=== PATIENT | female | born 1995 | race African-American/Black ===

== ENCOUNTER → 2020-03-14 | Outpatient (CLI) | payer MEDICAID, SELFPAY ==
[2017-10-09 05:17] VITALS: BMI 31.9
[2020-03-14 19:04] LABS: Neisserai gonorrhoeae by PCR Negative (Negative); Probe Check PASS
[2020-03-14 19:06] LABS: Chlamydia Trachomatis by PCR POSITIVE (Negative)
[2020-03-20 16:32] LABS: HPV Reflexed? NOT INDICATED
== END | disposition home or self-care (01) ==
LOC: LABSPEC 15:29
PROVIDERS: Visit Provider Obstetrics & Gynecology
DX: Z12.4 Encounter for screening for malignant neoplasm of cervix (principal); Z11.3 Encounter for screening for infections with a predominantly sexual mode of transmission
CPT/HCPCS: 87491; 87591; 88175; G0145

== ENCOUNTER 2021-01-22 03:30 | Emergency (ER) | payer MEDICAID, SELFPAY ==
[2017-10-09 05:17] VITALS: BMI 31.9
--- NOTE | 2021-01-22 03:30 | RAD_ITS ---
STUDY: X-RAY CHEST REASON FOR EXAM: Female, 26 years old. CHEST PAIN TECHNIQUE: Single frontal view of the chest. COMPARISON: None. FINDINGS: Low lung volumes. Mild RIGHT basilar atelectasis/infiltrate. No pneumothorax or pleural effusion. Normal size heart. Normal mediastinum and tyrone. Normal visualized pulmonary arteries. Normal visualized aortic arch and descending thoracic aorta. Normal visualized thoracic spine. Normal visualized ribs, clavicles, and shoulders. There is no demonstrated abnormality of the visualized soft tissue structures of the upper abdomen. RAD/Chest 1 View (Portable) IMPRESSION: Mild RIGHT basilar atelectasis/infiltrate. Electronically Signed: Walter Romero MD at 4:23 EDT Tel , Service support ,
--- NOTE | 2021-01-22 08:58 | EKG12_ITS ---
Test Reason : CP Blood Pressure : / mmHG Vent. Rate : 085 BPM Atrial Rate : 085 BPM P-R Int : 174 ms QRS Dur : 086 ms QT Int : 348 ms P-R-T Axes : 058 032 012 degrees QTc Int : 414 ms Normal sinus rhythm with sinus arrhythmia Nonspecific ST and T wave abnormality Abnormal ECG Confirmed by FRANKLIN THAYER, GALI ([id number]), editor managing newspaper DESTINY NELSON ([id number]) on 01/24/2021 9:10:27 AM Referred By: Jonathan Harrington Confirmed By:GALI REID MD
[2021-01-22 09:41] LABS: BUN 14 mg/dL (7-18); BUN/Creat Ratio 16.7 RATIO (10-20); Creatinine, Serum 0.84 mg/dL (0.55-1.02); EST Glomerular Filtration Rate 88 mL/min (>60); Est Glom Filt Rate - Afr Amer 107 mL/min (>60); Glucose 98 mg/dL (74-106)
[2021-01-22 09:42] LABS: Absolute Lymphocyte Count 2.64 X10^3/uL (0.83-4.51); Absolute Neutrophil Count 3.2 X10^3/uL (2.0-7.7); Anion Gap 7 (5-15); Basophil# 0.05 X10^3/uL; Basophil% 0.8 % (0-1); Calcium,Total 9.2 mg/dL (8.5-10.1); Chloride 103 mmol/L (98-107); Eosinophil# 0.08 X10^3/uL; Eosinophils% 1.3 % (0-5); Hematocrit 39.1 % (37-47); Hemoglobin 12.6 g/dL (12.0-15.0); Lymphocyte # 2.64 X10^3/ul (0.83-4.51); Lymphocyte % 41.4 % (19-41); Mean Corp Hgb Conc 32.2 g/dL (32-36); Mean Corpuscular Hgb 28.6 pg (27.0-32.0); Mean Corpuscular Volume 88.9 fL (81-99); Mean Platelet Vol. 10.9 fl (6.2-12.0); Monocyte# 0.37 X10^3/uL; Monocyte% 5.8 % (0-10); NRBC Flagged by Analyzer 0 % (0-5); Neutrophil # 3.22 X10^3/uL (2.7-7.7); Neutrophil % 50.4 % (47-70); Platelet Count 233 K/mm3 (150-450); Potassium 3.5 mmol/L (3.5-5.1); RBC Distribution Width CV 14.3 % (11.6-14.6); RBC Distribution Width SD 46.5 fl (35.1-43.9); Sodium Level 139 mmol/L (136-145); White Blood Count 6.4 K/mm3 (4.4-11.0)
--- NOTE | 2021-02-06 22:38 | EX.ED.DYSGE1 ---
PFSH PFSH Home Medications Tablet 1 tab DAILY 10/09/17 [History Last Taken 10/08/17 09:00] docusate sodium 100 mg PO BID PRN PRN #60 cap 10/09/17 [Rx Last Taken Unknown] oxycodone 5 - 10 mg PO Q6H PRN PRN #25 tab 10/09/17 [Rx Last Taken Unknown] ibuprofen 800 mg PO TID PRN PRN #30 tab 10/11/17 [Rx Last Taken Unknown] Allergy/AdvReac Type Severity Reaction Status Date / Time No Known Allergies Allergy Verified 10/26/14 08:22 Social History Smoking Status: Former smoker MDM MDM Treatment and Re-Evaluation Comments:: This is a late entry. Patient was seen during downtime while we are switching to the new electronic health record. Please refer to the template done at that time. She presented with chest pain that she described as pressure lasting for several hours in her left chest and left upper extremity. She reports no history of heart disease or blood clots or aortic disease. Vital signs were reviewed. Patient alert and oriented. No acute distress. Heart regular rate and rhythm. Lungs clear. Pulses 2+ and equal. Calves soft and supple. Skin appears normal. Atypical chest pain EKG showed sinus rhythm at a rate of [address]-T wave changes. No sign of acute ischemia or infarction pattern. She was placed on a monitor. CBC and metabolic panel were unremarkable. Troponin was normal. Chest x-ray showed right basilar atelectasis, reviewed by the radiologist and myself. She was PERC negative. After discussion with the patient, she would like to follow-up as an outpatient. Return for any new or worsening issues. Discharged in stable condition. Discharge Plan Triage ED Provider: Jonathan Harrington Dx/Rx/DC Orders Prescriptions: No Action Tablet 1 tab DAILY RF: 0 oxycodone 5 MG tablet 5 - 10 mg PO Q6H PRN PRN (Reason: Severe Pain (6-10/10)) Qty: 25 RF: 0 docusate sodium 100 MG capsule 100 mg PO BID PRN PRN (Reason: Constipation) Qty: 60 RF: 1 ibuprofen 800 MG tablet 800 mg PO TID PRN PRN (Reason: pain or cramping) Qty: 30 RF: 1 Primary Care Provider: Care Physician,No Primary Disposition Disposition: Home, self care Discharge Date/Time: 01/22/21 04:55
== END 2021-01-22 04:55 | disposition home or self-care (01) ==
LOC: ED 07:23
PROVIDERS: Emergency Provider Emergency Medicine; Referring Provider Emergency Medicine
DX: R07.89 Other chest pain (principal); Z87.891 Personal history of nicotine dependence
CPT/HCPCS: 71045; 80048; 84484; 85025; 93005; 99283

== ENCOUNTER 2021-04-22 09:09 | Emergency (ER) | payer MEDICAID, SELFPAY ==
[2021-04-22 09:10] VITALS: BP 128/82; PULSE 95; RESP 18; TEMP 37.4; O2SAT 99; BMI 32.5
--- NOTE | 2021-04-22 09:24 | EX.ED.UPPERE ---
HPI History of Present Illness Chief Complaint: Laceration Detail of Chief Complaint: Left index finger laceration Informant: patient Occured/Mechanism Comment: Cut with scissors Onset/Context/Timing Onset: Today Current Severity: Mild Maximum Severity: Mild Narrative Narrative: Patient presents after suffering a laceration to her left index finger. Patient is right-hand dominant. She was using scissors this morning when she cut her left index finger. She did place a wound powder over the wound. She wished to have it evaluated to ensure it would not get infected or require stitches. Tetanus is up-to-date. PFSH PFSH no medical history Home Medications NK 04/22/21 [History Last Taken Unknown] Allergy/AdvReac Type Severity Reaction Status Date / Time No Known Allergies Allergy Verified 04/22/21 09:10 Social History Smoking Status: Former smoker ROS ROS ED Constitutional Constitutional ED: Denies chills or fever(s) ENT ENT ED: Denies sore throat Cardiovascular Cardiovascular: Denies chest pain Respiratory/Chest Respiratory/Chest: Denies cough or dyspnea Gastrointestinal Gastrointestinal: Denies abdominal pain, diarrhea, nausea or vomiting Integumentary Reports other Details: Left index finger laceration ; Denies rash Neurologic Neurologic: Denies headache(s) or weakness Psychiatric Psychiatric: Denies anxiety or depression Endocrine Endocrinology: Denies polydipsia or polyuria Allergic/Immunologic Allergic/Immunologic ED: Denies urticaria EXAM Physical Exam Const Vital Signs: 04/22/21 09:10 Temperature 99.4 F H Temperature Source Temporal Pulse Rate 95 Respiratory Rate 18 Blood Pressure 128/82 H Blood Pressure Mean 97 Pulse Ox 99 Oxygen Delivery Method Room Air Positive well nourished and well developed General Appearance ED: well developed HEENT normocephalic and atraumatic Eyes EOMs intact bilaterally Neck supple Chest Wall inspection of chest normal Resp normal respiratory effort Cardio regular rate and regular rhythm Extremity Extremity Narrative: Left index finger laceration. Full range of motion with normal sensation distally. Good cap refill. Neuro oriented x3 and no sensory deficits noted Sensorium / Orientation: alert Motor Exam: strength 5/5 throughout Psych mental status grossly normal Skin Skin Narrative: 2 cm laceration over the middle phalanx of the left index finger. Bleeding well controlled. Trauma: laceration linear Procedures Lacerations Left index finger laceration: Length: 0.79 in Depth: Skin Shape: Linear Prep: Shure-Clens Number of Sutures/[place]: 3 Suture Information: Ethilon, Simple and 5-0 Discharge Plan Triage Chief Complaint: Laceration ED Provider: Niki Hsu Dx/Rx/DC Orders Clinical Impression: Finger laceration Instructions: ED Laceration, Hand: All Closures Prescriptions: No Action NK RF: 0 Primary Care Provider: Roderick Martinez Referrals: Roderick Martinez MD [Primary Care Provider] - 7 Days for suture removal Disposition Disposition: Home, Self Care
[2021-04-22 10:23] VITALS: PULSE 74; RESP 16; O2SAT 98
[2021-04-22] MEDS: Lidocaine 1% (20 ml mdv) 20 ML Vial INFILT (10:23)
--- NOTE | 2021-04-22 10:24 | ED.RN ---
THIS NURSE REVIEWED D/C INSTRUCTIONS WITH PT. PT VERBALIZED UNDERSTANDING OF INSTRUCTIONS. PT DENIES FURTHER NEEDS OR QUESTIONS AT THIS TIME. PT AMBULATES FROM ROOM ON OWN WITHOUT ASSISTANCE FROM STAFF
== END 2021-04-22 10:25 | disposition home or self-care (01) ==
PROVIDERS: Emergency Provider Emergency Medicine; PCP Family Medicine
DX: S61.211A Laceration without foreign body of left index finger without damage to nail, initial encounter (principal); Z87.891 Personal history of nicotine dependence; W26.8XXA Contact with other sharp object(s), not elsewhere classified, initial encounter; Y93.89 Activity, other specified; Y92.009 Unspecified place in unspecified non-institutional (private) residence as the place of occurrence of the external cause; Y99.8 Other external cause status
CPT/HCPCS: 12001; 99283

== ENCOUNTER → 2021-05-18 | Outpatient (CLI) | payer MEDICAID, SELFPAY | END | disposition home or self-care (01) | LOC: EMPH 05-20 08:19 → LABSPEC 06-06 13:57 | PROVIDERS: PCP Family Medicine; Referring Provider Nurse Practitioner Family; Visit Provider Internal Medicine Infectious Disease | DX: R05 Cough (principal) | CPT/HCPCS: 87635; U0005; U0003 ==

== ENCOUNTER 2021-09-08 01:05 | Emergency (ER) | payer MEDICAID, SELFPAY ==
[2021-09-08 01:06] VITALS: BP 139/101; PULSE 130; RESP 18; TEMP 36.6; O2SAT 100; BMI 32.1
--- NOTE | 2021-09-08 01:28 | EKG12_ITS ---
Test Reason : CP Blood Pressure : / mmHG Vent. Rate : 126 BPM Atrial Rate : 126 BPM P-R Int : 170 ms QRS Dur : 078 ms QT Int : 276 ms P-R-T Axes : 054 023 010 degrees QTc Int : 399 ms Sinus tachycardia Nonspecific T wave abnormality Abnormal ECG Confirmed by HARITHA THAYER, KALI ([id number]), rock splitter DESTINY NELSON ([id number]) on 09/09/2021 10:26:00 AM Referred By: TL Confirmed By:KALI MG MD
--- NOTE | 2021-09-08 01:29 | EX.ED.DYSGE1 ---
HPI History of Present Illness Chief Complaint: Chest Pain Informant: patient Narrative Narrative: Patient presents with increasing myalgia's right lower back right upper shoulder right chest since yesterday. Symptoms are improving with Tylenol Motrin [id number]. Diagnosed with Covid 9 days ago symptoms started 2 weeks ago. Reported initially lost taste and smell, 9 days ago had headache and chills when she got tested. She is nonvaccinated. States that the Covid infection earlier this year. Denies vomiting or diarrhea. States getting some mild taste and smell back currently. However yesterday noted new pains primary right flank. She still has urine frequency. Denies past medical history. States nonproductive cough. Reports her first Covid diagnosis was mild with just fatigue. Prior similar symptoms: No PFSH PFSH Medical History COVID Home Medications rivaroxaban [Xarelto DVT-PE Treat 30d Start] See Rx Instructions .ROUTE .COMPLEX #51 tab 09/08/21 [Rx Last Taken Unknown] Allergy/AdvReac Type Severity Reaction Status Date / Time No Known Allergies Allergy Verified 09/08/21 01:06 Surgical History History of Social History Smoking Status: Former smoker ROS ROS ED Constitutional Constitutional ED: Denies chills, fever(s) or sweats Eyes Eyes: Denies change in vision ENT ENT ED: Denies dysphagia or sore throat Cardiovascular Cardiovascular: Denies chest pain, leg edema, palpitations or racing heartbeat Respiratory/Chest Respiratory/Chest: Reports cough; Denies dyspnea or dyspnea on exertion Gastrointestinal Gastrointestinal: Denies abdominal pain, diarrhea, nausea or vomiting Genitourinary Genitourinary ED: Reports urinary frequency; Denies dysuria or hematuria Musculoskeletal Musculoskeletal: Reports back pain and myalgias; Denies extremity pain or neck pain Integumentary Denies rash or wounds Neurologic Neurologic: Denies headache(s), paresthesias or weakness EXAM Physical Exam Const Vital Signs: 09/08/21 01:06 09/08/21 01:16 09/08/21 03:13 Temperature 97.8 F Temperature Source Temporal Pulse Rate 130 H 108 H Respiratory Rate 18 20 H Respiratory Effort Normal Non-Labored Respiratory Pattern Normal Blood Pressure 139/101 H Blood Pressure Mean 113 Pulse Ox 100 99 Oxygen Delivery Method Room Air Room Air 09/08/21 04:10 Temperature Temperature Source Pulse Rate 107 H Respiratory Rate 20 H Respiratory Effort Respiratory Pattern Blood Pressure Blood Pressure Mean Pulse Ox 99 Oxygen Delivery Method Positive well nourished and well developed General Appearance ED: well developed and NAD HEENT Reports moist mucous membranes normocephalic and atraumatic Eyes PERRL, EOMs intact bilaterally and conjunctivae normal General Eye ED: Yes normal appearance of both eyes Neck no lymphadenopathy and supple General: Negative for tenderness Chest Wall Chest: Negative for tenderness Resp normal respiratory effort and normal air movement Effort and Inspection: symmetric chest movement; Negative for respiratory distress Cardio regular rate, regular rhythm and no murmurs Rate: bradycardia and other Peripheral Pulses: pulses 2+ throughout GI normal to inspection, nondistended, normoactive bowel sounds and non-tender Palpation: Negative for guarding or rebound tenderness present Back/Spine no CVA tenderness and no thoracic nor lumbar tenderness Extremity normal to inspection General Extremety ED: Negative for edema or tenderness General Extremity: Negative for edema Neuro oriented x3 and no sensory deficits noted Sensorium / Orientation: awake and alert Skin no rashes or lesions noted and no wounds MDM MDM MDM Narrative Medical decision making narrative: Patient nontoxic no respiratory distress. Pulse ox 100% on arrival. Patient tachycardic. EKG confirms sinus tachycardia. Currently recovering from Covid new symptoms over 2 days pain in the shoulder right chest. Low risk Wells criteria for PE, labs with D-dimer obtained. This was elevated. Subsequent CTA of the chest obtained discussion with radiology right lower lobe pulmonary embolism with wedge-shaped infarct. With IV fluids heart rate in the 90s on reevaluation. Pulse ox remained at 99% on reevaluation. Creatinine clearance is normal. Discussed medication treatments. She has prescription coverage. She is started on Xarelto with starter pack sent to her pharmacy. First dose was given in the ED. Discussed avoiding NSAIDs, using Tylenol as needed for pain control. Following up with her PCP for reevaluation and continued medical treatment. All questions were answered. Patient is being discharged under pandemic conditions under declared global, national and state disaster activation, with limited medical resources. Patient and community understands this. Results discussed in layman's terms to the patient satisfaction. All questions answered in layman's terms. Patient understands importance of follow-up care as directed. Patient has been instructed to return to the ED immediately if new symptoms, problems, or questions occur. We mutually agree with the plan of disposition. The patient understand that they may call or return with any questions or concerns at any time. Lab Data Attestation: I reviewed the patient's lab results. Labs: Laboratory Results - last 24 hr 09/08/21 09/08/21 09/08/21 01:45 01:45 01:45 WBC 8.0 RBC 4.15 L Hgb 10.8 L Hct 33.8 L MCV 81.4 MCH 26.0 L MCHC 32.0 RDW Std Deviation 42.8 RDW Coeff of Vinay 14.4 Plt Count 291 MPV 10.5 Immature Gran % (Auto) 0.700 Neut % (Auto) 78.5 H Lymph % (Auto) 14.4 L Ida % (Auto) 6.0 Eos % (Auto) 0.2 Baso % (Auto) 0.2 Absolute Neuts (auto) 6.3 Absolute Lymphs (auto) 1.15 Nucleated RBC % 0 D-Dimer Quant (PE/DVT) 2.45 H* Sodium Potassium Chloride Carbon Dioxide Anion Gap BUN Creatinine Estim Creat Clear Calc Est GFR (MDRD) Af Amer Est GFR (MDRD) Non-Af BUN/Creatinine Ratio Glucose Calcium Serum , Qual Urine Color Yellow Urine Clarity Clear Urine pH 6.5 Ur Specific [place] 1.010 Urine Protein Negative Urine Glucose (UA) Normal Urine Ketones Negative Urine Occult Blood Negative Urine Nitrite Negative Urine Bilirubin Negative Urine Urobilinogen Normal Ur Leukocyte Esterase Negative Urine RBC 0 SEEN Urine WBC 0 SEEN Ur Squamous Epith Cells 0-5 SEEN Urine Bacteria 1+ Urine Mucus 0 SEEN 09/08/21 09/08/21 01:45 01:45 WBC RBC Hgb Hct MCV MCH MCHC RDW Std Deviation RDW Coeff of Vinay Plt Count MPV Immature Gran % (Auto) Neut % (Auto) Lymph % (Auto) Ida % (Auto) Eos % (Auto) Baso % (Auto) Absolute Neuts (auto) Absolute Lymphs (auto) Nucleated RBC % D-Dimer Quant (PE/DVT) Sodium 140 Potassium 3.3 L Chloride 106 Carbon Dioxide 27.0 Anion Gap 7 BUN 11 Creatinine 0.77 Estim Creat Clear Calc 84.28 Est GFR (MDRD) Af Amer 117 Est GFR (MDRD) Non-Af 97 BUN/Creatinine Ratio 14.3 Glucose 103 Calcium 8.9 Serum , Qual NEGATIVE Urine Color Urine Clarity Urine pH Ur Specific [place] Urine Protein Urine Glucose (UA) Urine Ketones Urine Occult Blood Urine Nitrite Urine Bilirubin Urine Urobilinogen Ur Leukocyte Esterase Urine RBC Urine WBC Ur Squamous Epith Cells Urine Bacteria Urine Mucus Radiography Diagnostic Testing: Clinical Impression(s) from Imaging Studies Chest CTA 09/08/21 02:39 IMPRESSION: Small peripheral right lower lobe pulmonary emboli. Wedge-shaped right lower lobe density probably representing a pulmonary infarction. Right lower lobe pneumonia or subsegmental atelectasis are less likely. N.B. : The above Results were Read Back by Daniele Miranda MD to Don Marie MD, and understanding confirmed on 09/08/2021 03:49:52 (ET). Electronically Signed: Daniele Miranda MD at 3:55 EST , Service support , ADDENDUM: 09/08/21 0402 IMPRESSION: Small peripheral right lower lobe pulmonary emboli. Wedge-shaped right lower lobe density probably representing a pulmonary infarction. Right lower lobe pneumonia or subsegmental atelectasis are less likely. N.B. : The above Results were Read Back by Daniele Miranda MD to Don Marie MD, and understanding confirmed on 09/08/2021 03:49:52 (ET). Electronically Signed: Daniele Miranda MD at 3:55 EST , Service support , EKG Initial EKG: Attestation: I personally reviewed and interpreted this EKG as follows: Comments: Sinus rate of 126, no ST changes. T wave inversion leads III. Nonspecific. Discharge Plan Triage Chief Complaint: Chest Pain ED Provider: Don Marie Dx/Rx/DC Orders Clinical Impression: Pulmonary embolism on right, COVID-19 virus infection, Pulmonary infarct Instructions: Pulmonary Embolism Prescriptions: New Xarelto DVT-PE Treat 30d Start 15 mg (42)- 20 mg (9) tablets,dose pack See Rx Instructions .ROUTE .COMPLEX Qty: 51 RF: 0 Primary Care Provider: Roderick Martinez Referrals: Roderick Martinez MD [Primary Care Provider] - 5-7 Days Activity Restrictions/Additional Instructions: Right lower lobe pulmonary embolism with infarct. Your oxygen is 99% on room air. Take medication as prescribed for blood thinner. Use Tylenol as needed for pain. Avoid anti-inflammatory medicine secondary to being on Xarelto. Follow-up with your doctor. Disposition Disposition: Home, Self Care Discharge Date/Time: 09/08/21 04:11
[2021-09-08 01:50] LABS: Mucous, Urine 0 SEEN /hpf (<or=2+); Red Blood Cells-Urine 0 SEEN /hpf (0-5); White Blood Cells 0 SEEN /hpf (0-5)
[2021-09-08 01:53] LABS: Color, Urine Yellow (Yellow); Glucose, Dipstick Normal (Normal); Ketone-Dipstick Negative (Negative); Leukocyte Esterase-Dipstick Negative /ul (Negative); Nitrite-Dipstick Negative (Negative); Occult Blood-Urine Negative /ul (Negative); Protein-Dipstick Negative (Negative); Urine Bilirubin Dipstick Negative (Negative); Urine Clarity Clear (Clear); Urine Urobilinogen Normal (Normal); Urine pH 6.5 (5.0 - 8.0)
[2021-09-08 02:09] LABS: Bacteria 1+ /hpf (None Seen); Squamous Epithelial Cells - UA 0-5 SEEN /hpf (5-10)
[2021-09-08 02:13] LABS: Absolute Lymphocyte Count 1.15 X10^3/uL (0.83-4.51); Absolute Neutrophil Count 6.3 X10^3/uL (2.0-7.7); Basophil# 0.02 X10^3/uL; Basophil% 0.2 % (0-1); Eosinophil# 0.02 X10^3/uL; Eosinophils% 0.2 % (0-5); Hematocrit 33.8 % (37-47); Hemoglobin 10.8 g/dL (12.0-15.0); Lymphocyte # 1.15 X10^3/ul (0.83-4.51); Lymphocyte % 14.4 % (19-41); Mean Corpuscular Volume 81.4 fL (81-99); Mean Platelet Vol. 10.5 fl (6.2-12.0); Monocyte# 0.48 X10^3/uL; NRBC Flagged by Analyzer 0 % (0-5); Neutrophil # 6.28 X10^3/uL (2.7-7.7); Neutrophil % 78.5 % (47-70); Platelet Count 291 K/mm3 (150-450); RBC Distribution Width CV 14.4 % (11.6-14.6); RBC Distribution Width SD 42.8 fl (35.1-43.9); Red Blood Count 4.15 M/mm3 (4.2-5.4)
[2021-09-08 02:17] LABS: Internal QC Validated? YES +Cl - CLEAR BKGD; Pregnancy, Serum, hCG Quali. NEGATIVE Negative
[2021-09-08 02:20] LABS: Anion Gap 7 (5-15); BUN 11 mg/dL (7-18); BUN/Creat Ratio 14.3 RATIO (10-20); Calcium,Total 8.9 mg/dL (8.5-10.1); Chloride 106 mmol/L (98-107); Creatinine, Serum 0.77 mg/dL (0.55-1.02); EST Glomerular Filtration Rate 97 mL/min (>60); Est Glom Filt Rate - Afr Amer 117 mL/min (>60); Estimated Creatinine Clearance 84.28 ml/min; Glucose 103 mg/dL (74-106); Potassium 3.3 mmol/L (3.5-5.1); Sodium Level 140 mmol/L (136-145)
[2021-09-08 02:31] LABS: D-Dimer Quantitative (DVT/PE) 2.45 FEU/ug/m (0.27-0.49)
--- NOTE | 2021-09-08 02:39 | CT_ITS ---
STUDY: CTA CHEST REASON FOR EXAM: Female, 26 years old. chest pain, elevated dimer, recent Covid infection. RADIATION DOSAGE (If Supplied By Facility): CTDIvol = ( 12.93 ) mGy, DLP = ( 425.22 ) mGycm TECHNIQUE: The examination was performed with the intravenous administration of IV 100mL Isovue-370. Post-processing of the angiographic images was performed, with multiplanar reformation and maximum intensity projections.. Individualized dose optimization techniques were used for this CT. COMPARISON: Chest x-ray January 22, 2021. FINDINGS: Normal enhancement of the main pulmonary artery and right and left pulmonary arteries. Peripheral pulmonary embolus involving an anterior branch of the right lower lobe pulmonary artery axial image 97 and a posterior branch of the right lower lobe pulmonary artery axial image 93. No evidence of right heart strain. Normal thoracic aorta and visualized great vessels. There is no demonstrated aortic dissection. Normal heart and pericardium. Normal mediastinum. Normal hilar regions. Left supraclavicular lymph node which is not pathologic by size criteria. Normal visualized trachea and bronchi wedge-shaped density right lower lobe compatible with a pulmonary infarct, subsegmental atelectasis or pneumonia. Linear left lower lobe subsegmental atelectasis or fibrosis. No effusions. No pneumothorax. Normal pleura. Normal chest wall structures. Normal osseous structures. Normal visualized upper abdomen. CT/CTA Chest W/WO Contrast IMPRESSION: Small peripheral right lower lobe pulmonary emboli. Wedge-shaped right lower lobe density probably representing a pulmonary infarction. Right lower lobe pneumonia or subsegmental atelectasis are less likely. N.B. : The above Results were Read Back by Daniele Miranda MD to Don Marie MD, and understanding confirmed on 09/08/2021 03:49:52 (ET). Electronically Signed: Daniele Miranda MD at 3:55 EST , Service support ,
[2021-09-08 03:13] VITALS: PULSE 108; RESP 20; O2SAT 99
[2021-09-08] MEDS: Rivaroxaban 15 MG Tablet PO (04:09)
[2021-09-08 04:10] VITALS: PULSE 107; RESP 20; O2SAT 99
== END 2021-09-08 04:11 | disposition home or self-care (01) ==
PROVIDERS: Emergency Provider Emergency Medicine; PCP Family Medicine
DX: I26.99 Other pulmonary embolism without acute cor pulmonale (principal); U07.1 COVID-19; J98.4 Other disorders of lung; R35.0 Frequency of micturition; Z86.16 Personal history of COVID-19; Z87.891 Personal history of nicotine dependence
CPT/HCPCS: 71275; 80048; 81001; 84703; 85025; 85379; 93005; 96360; 99285; J7040; Q9967; A4216

== ENCOUNTER 2022-07-30 16:56 | Emergency (ER) | payer OTHER, MEDICAID, SELFPAY ==
[2022-07-30 16:56] VITALS: BP 130/85; PULSE 87; RESP 16; TEMP 36.6; O2SAT 100; BMI 32.8
--- NOTE | 2022-07-30 17:16 | ED.VIS.FEGU ---
HPI HPI - Female History of Present Illness Chief Complaint: Vag Bleeding Narrative Narrative: 27-year-old female here with vaginal bleeding in the setting of recent positive home test. The patient states she has noticed lower abdominal cramping, vaginal spotting, bleeding for the last week. Denies any passage of tissue. Denies any history of ectopic , fertility treatments, manipulation, history of PID. Denies any vomiting. No she is a . Denies history of miscarriages PFSH PFSH Medical History COVID no medical history Allergy/AdvReac Type Severity Reaction Status Date / Time No Known Allergies Allergy Verified 07/30/22 16:58 Surgical History History of Social History Smoking Status: Current every day smoker tobacco type: cigarettes and e-cigarettes ROS ROS ED ROS Narrative Constitutional: Denies fever HEENT: Denies sore throat Neck: Denies neck pain Cardiovascular: Denies chest pain, syncope Respiratory: Denies shortness of breath GI: Abdominal cramping : Vaginal bleeding Musculoskeletal: Denies muscle or joint pain Neurologic: Denies numbness weakness or loss of sensation Skin denies rash EXAM Physical Exam Narrative Exam Narrative: Nursing triage notes reviewed, Vital signs reviewed Constitutional: please see mdm HENT: MMM Eyes: Pupils equal round and reactive to light, Extraocular muscles intact Neck: No stridor, no JVD, full neck ROM Lungs: Clear to auscultation, No wheezing or rales. No increased work of breathing, no conversational dyspnea, no accessory muscle use, no nasal flaring. No respiratory distress noted Heart: Regular rate and rhythm, No murmurs, No rubs and No gallops, 2+ distal pulses (radial, femoral, posterior tibial) in all extremities Abdomen: Soft, there is no tenderness, rigidity, rebound or guarding, no obvious peritoneal signs, no palpable pulsatile abdominal masses, no auscultated abdominal bruit : No CVAT, pelvic exam deferred by patient Extremities: No edema Neuro: No focal neurological deficits, cranial nerves II through XII intact, 5/5 strength in all extremities. Intact sensation to light touch in all extremities, 2+ reflexes bilateral patella dens. Normal gait. No ataxia. Skin: No rash or lesions noted Const Vital Signs: 07/30/22 16:56 07/30/22 19:45 Temperature 98 F Temperature Source Temporal Pulse Rate 87 Respiratory Rate 16 18 Blood Pressure 130/85 H Blood Pressure Mean 100 Pulse Ox 100 Oxygen Delivery Method Room Air Room Air MDM MDM MDM Narrative Medical decision making narrative: 27-year-old female here for vaginal bleeding early . Patient is probably 5 weeks . Is a G3, P2. No history miscarriages. No history of ectopic or fertility treatments or manipulation. Obtain ultrasound to rule out ectopic . Obtained a quantitative hCG. Also obtain a type and screen to ascertain the patient's Rh status, obtain a CBC to rule out significant anemia given vaginal bleeding. Labs images remarkable for evidence of with a beta-hCG of 1495. Ultrasound showed no evidence of intrauterine or ectopic . While ectopic cannot be fully ruled out I do not see evidence of that today. Patient did not require emergent COLUMNIST/COMMENTATOR consultation. Patient was Rh+ and as such does not require RhoGAM. She is given strict return precautions and OB follow-up instructions Lab Data Attestation: I reviewed the patient's lab results. Lab results narrative: CBC without leukocytosis, severe anemia, no thrombocytopenia. BMP without evidence of significant electrolyte abnormalities, no anion gap, no acute kidney injury. Blood type Rh+, no need for RhoGAM UA with evidence of inflammation but no obvious evidence of bacterial infection Labs: Laboratory Results - last 24 hr 07/30/22 07/30/22 07/30/22 18:10 18:10 18:10 WBC 5.8 RBC 4.61 Hgb 12.4 Hct 37.5 MCV 81.3 MCH 26.9 L MCHC 33.1 RDW Std Deviation 45.1 H RDW Coeff of Vinay 15.2 H Plt Count 308 MPV 9.9 Immature Gran % (Auto) 0.300 Neut % (Auto) 60.7 Lymph % (Auto) 32.8 [place] % (Auto) 5.0 Eos % (Auto) 0.7 Baso % (Auto) 0.5 Absolute Neuts (auto) 3.5 Absolute Lymphs (auto) 1.90 Nucleated RBC % 0 Sodium 139 Potassium 3.4 L Chloride 106 Carbon Dioxide 26.0 Anion Gap 7 BUN 8 Creatinine 0.78 Estim Creat Clear Calc 82.48 Est GFR (MDRD) Af Amer 115 Est GFR (MDRD) Non-Af 95 BUN/Creatinine Ratio 10.3 Glucose 98 Calcium 9.7 HCG, Quant 1495 H Urine Color Urine Clarity Urine pH Ur Specific [place] Urine Protein Urine Glucose (UA) Urine Ketones Urine Occult Blood Urine Nitrite Urine Bilirubin Urine Urobilinogen Ur Leukocyte Esterase Blood Type 07/30/22 07/30/22 07/30/22 18:10 18:10 18:10 WBC RBC Hgb Hct MCV MCH MCHC RDW Std Deviation RDW Coeff of Vinay Plt Count MPV Immature Gran % (Auto) Neut % (Auto) Lymph % (Auto) [place] % (Auto) Eos % (Auto) Baso % (Auto) Absolute Neuts (auto) Absolute Lymphs (auto) Nucleated RBC % Sodium Potassium Chloride Carbon Dioxide Anion Gap BUN Creatinine Estim Creat Clear Calc Est GFR (MDRD) Af Amer Est GFR (MDRD) Non-Af BUN/Creatinine Ratio Glucose Calcium HCG, Quant Urine Color Alexa Urine Clarity Clear Urine pH 7.0 Ur Specific [place] 1.010 Urine Protein 30 H Urine Glucose (UA) Normal Urine Ketones 5 H Urine Occult Blood 250 H Urine Nitrite Negative Urine Bilirubin Negative Urine Urobilinogen Normal Ur Leukocyte Esterase 25 H Blood Type TNP A POSITIVE Radiography Diagnostic Testing: Clinical Impression(s) from Imaging Studies Obstetrics Ultrasound 07/30/22 18:00 IMPRESSION: 1. No evidence of intrauterine suggesting miscarriage. 2. No visualized ectopic . The possibility of an ectopic cannot be entirely ruled out in the presence of free fluid. 3. Normal ovaries Electronically Signed: Fabian Chun DO at 19:06 EDT Reading Location ID and State: [address] [place] [address] Tel [phone], Service support , Treatment and Re-Evaluation Narrative: Repeat abdominal exam remained benign. The patient's appropriate for discharge home. Discharge Plan Triage Chief Complaint: Vag Bleeding ED Provider: Robel Garcia Dx/Rx/DC Orders Clinical Impression: Miscarriage Instructions: Miscarriage Dc Primary Care Provider: Roderick Martinez Referrals: Kvng Gandhi MD [Med Staff - Active Staff] - Activity Restrictions/Additional Instructions: Please follow-up with your COLUMNIST/COMMENTATOR at the next available appointment. If you do not have an COLUMNIST/COMMENTATOR 1 has been provided for you. Please return if you develop suddenly worsening abdominal pain. Heavy vaginal bleeding that is accompanied by lightheadedness, dizziness, fatigue, shortness of breath or chest pain Disposition Disposition: Home, Self Care
--- NOTE | 2022-07-30 18:00 | US_ITS ---
STUDY: FIRST TRIMESTER OBSTETRICAL ULTRASOUND REASON FOR EXAM: Female, 27 years old. Vaginal bleeding and lower abdominal pain. 5 week . LMP: July 05, 2022 TECHNIQUE: Transvaginal TECHNICAL QUALITY: Adequate. PRIOR ULTRASOUND: None. FINDINGS: There is no demonstrated intrauterine gestational sac. The estimated gestation age (EGA) by LMP is 5 weeks, 4 days. The estimated date of delivery (ALBERTA) by LMP is March 28, 2023. The uterus measures 7.6 x 5.7 x 3.9 cm. The endometrium measures 9 mm in thickness and is hyperechoic. There is no demonstrated uterine fibroid. The cervix is closed. The right ovary measures 3.6 x 2.3 x 2.0 cm. There are multiple follicles of the right ovary without a dominant cyst. There is no visualized right adnexal mass or complex lesion. Normal vascularity on Doppler imaging. The left ovary measures 3.6 x 2.5 x 1.9 cm. There are multiple follicles of the left ovary without a dominant cyst. There is no visualized left adnexal mass or complex lesion. Normal vascularity on Doppler imaging. There is minimal fluid in the cul de sac. US/Transvaginal w/Preg US IMPRESSION: 1. No evidence of intrauterine suggesting miscarriage. 2. No visualized ectopic . The possibility of an ectopic cannot be entirely ruled out in the presence of free fluid. 3. Normal ovaries Electronically Signed: Fabian Chun DO at 19:06 EDT ,
[2022-07-30 18:24] LABS: Absolute Neutrophil Count 3.5 X10^3/uL (2.0-7.7); Basophil# 0.03 X10^3/uL; Basophil% 0.5 % (0-1); Color, Urine Amber (Yellow); Eosinophil# 0.04 X10^3/uL; Eosinophils% 0.7 % (0-5); Glucose, Dipstick Normal (Normal); Hematocrit 37.5 % (37-47); Hemoglobin 12.4 g/dL (12.0-15.0); Ketone-Dipstick 5 mg/dl (Negative); Leukocyte Esterase-Dipstick 25 /ul (Negative); Lymphocyte % 32.8 % (19-41); Mean Corp Hgb Conc 33.1 g/dL (32-36); Mean Corpuscular Hgb 26.9 pg (27.0-32.0); Mean Corpuscular Volume 81.3 fL (81-99); Mean Platelet Vol. 9.9 fl (6.2-12.0); Monocyte# 0.29 X10^3/uL; NRBC Flagged by Analyzer 0 % (0-5); Neutrophil # 3.51 X10^3/uL (2.7-7.7); Neutrophil % 60.7 % (47-70); Nitrite-Dipstick Negative (Negative); Occult Blood-Urine 250 /ul (Negative); Platelet Count 308 K/mm3 (150-450); Protein-Dipstick 30 mg/dl (Negative); RBC Distribution Width CV 15.2 % (11.6-14.6); RBC Distribution Width SD 45.1 fl (35.1-43.9); Red Blood Count 4.61 M/mm3 (4.2-5.4); Urine Bilirubin Dipstick Negative (Negative); Urine Clarity Clear (Clear); Urine Urobilinogen Normal (Normal); White Blood Count 5.8 K/mm3 (4.4-11.0)
[2022-07-30 18:42] LABS: Anion Gap 7 (5-15); BUN 8 mg/dL (7-18); BUN/Creat Ratio 10.3 RATIO (10-20); Calcium,Total 9.7 mg/dL (8.5-10.1); Chloride 106 mmol/L (98-107); Creatinine, Serum 0.78 mg/dL (0.55-1.02); EST Glomerular Filtration Rate 95 mL/min (>60); Est Glom Filt Rate - Afr Amer 115 mL/min (>60); Estimated Creatinine Clearance 82.48 ml/min; Glucose 98 mg/dL (74-106); Potassium 3.4 mmol/L (3.5-5.1); Sodium Level 139 mmol/L (136-145)
[2022-07-30 19:13] LABS: hCG Titer Quant., Serum 1495 mIU/mL (1-3)
[2022-07-30 19:45] VITALS: RESP 18
--- NOTE | 2022-07-30 20:48 | ED.VIS.FEGU ---
HPI HPI - Female History of Present Illness Chief Complaint: Vag Bleeding Narrative Narrative: 27-year-old female here with lower abdominal cramping, vaginal bleeding. Patient states she is approximately 5 weeks . No history of ectopic . No history of manipulation, fertility treatment, PID. Patient denies vomiting, fever, difficulty with urination. Denies passing any tissue, leakage of fluid does note vaginal spotting PFSH PFSH Medical History COVID Allergy/AdvReac Type Severity Reaction Status Date / Time No Known Allergies Allergy Verified 07/30/22 16:58 Surgical History History of Social History Smoking Status: Current every day smoker tobacco type: cigarettes and e-cigarettes ROS ROS ED ROS Narrative Constitutional: Denies fever HEENT: Denies sore throat Neck: Denies neck pain Cardiovascular: Denies chest pain, syncope Respiratory: Denies shortness of breath GI: Denies nausea vomiting or abdominal pain : Endorses vaginal bleeding Musculoskeletal: Denies muscle or joint pain Neurologic: Denies numbness weakness or loss of sensation Skin denies rash EXAM Physical Exam Narrative Exam Narrative: Nursing triage notes reviewed, Vital signs reviewed Constitutional: please see mdm HENT: MMM Eyes: Pupils equal round and reactive to light, Extraocular muscles intact Neck: No stridor, no JVD, full neck ROM Lungs: Clear to auscultation, No wheezing or rales. No increased work of breathing, no conversational dyspnea, no accessory muscle use, no nasal flaring. No respiratory distress noted Heart: Regular rate and rhythm, No murmurs, No rubs and No gallops, 2+ distal pulses (radial, femoral, posterior tibial) in all extremities Abdomen: Soft, there is no tenderness, rigidity, rebound or guarding, no obvious peritoneal signs, no palpable pulsatile abdominal masses, no auscultated abdominal bruit : No CVAT Extremities: No edema Neuro: No focal neurological deficits, cranial nerves II through XII intact, 5/5 strength in all extremities. Intact sensation to light touch in all extremities, 2+ reflexes bilateral patella dens. Normal gait. No ataxia. Skin: No rash or lesions noted Const Vital Signs: 07/30/22 16:56 07/30/22 19:45 Temperature 98 F Temperature Source Temporal Pulse Rate 87 Respiratory Rate 16 18 Blood Pressure 130/85 H Blood Pressure Mean 100 Pulse Ox 100 Oxygen Delivery Method Room Air Room Air [facility] Lab Data Labs: Laboratory Results - last 24 hr 07/30/22 07/30/22 07/30/22 18:10 18:10 18:10 WBC 5.8 RBC 4.61 Hgb 12.4 Hct 37.5 MCV 81.3 MCH 26.9 L MCHC 33.1 RDW Std Deviation 45.1 H RDW Coeff of Vinay 15.2 H Plt Count 308 MPV 9.9 Immature Gran % (Auto) 0.300 Neut % (Auto) 60.7 Lymph % (Auto) 32.8 [place] % (Auto) 5.0 Eos % (Auto) 0.7 Baso % (Auto) 0.5 Absolute Neuts (auto) 3.5 Absolute Lymphs (auto) 1.90 Nucleated RBC % 0 Sodium 139 Potassium 3.4 L Chloride 106 Carbon Dioxide 26.0 Anion Gap 7 BUN 8 Creatinine 0.78 Estim Creat Clear Calc 82.48 Est GFR (MDRD) Af Amer 115 Est GFR (MDRD) Non-Af 95 BUN/Creatinine Ratio 10.3 Glucose 98 Calcium 9.7 HCG, Quant 1495 H Urine Color Urine Clarity Urine pH Ur Specific [place] Urine Protein Urine Glucose (UA) Urine Ketones Urine Occult Blood Urine Nitrite Urine Bilirubin Urine Urobilinogen Ur Leukocyte Esterase Blood Type 07/30/22 07/30/22 07/30/22 18:10 18:10 18:10 WBC RBC Hgb Hct MCV MCH MCHC RDW Std Deviation RDW Coeff of Vinay Plt Count MPV Immature Gran % (Auto) Neut % (Auto) Lymph % (Auto) [place] % (Auto) Eos % (Auto) Baso % (Auto) Absolute Neuts (auto) Absolute Lymphs (auto) Nucleated RBC % Sodium Potassium Chloride Carbon Dioxide Anion Gap BUN Creatinine Estim Creat Clear Calc Est GFR (MDRD) Af Amer Est GFR (MDRD) Non-Af BUN/Creatinine Ratio Glucose Calcium HCG, Quant Urine Color Alexa Urine Clarity Clear Urine pH 7.0 Ur Specific [place] 1.010 Urine Protein 30 H Urine Glucose (UA) Normal Urine Ketones 5 H Urine Occult Blood 250 H Urine Nitrite Negative Urine Bilirubin Negative Urine Urobilinogen Normal Ur Leukocyte Esterase 25 H Blood Type TNP A POSITIVE Radiography Diagnostic Testing: Clinical Impression(s) from Imaging Studies Obstetrics Ultrasound 07/30/22 18:00 IMPRESSION: 1. No evidence of intrauterine suggesting miscarriage. 2. No visualized ectopic . The possibility of an ectopic cannot be entirely ruled out in the presence of free fluid. 3. Normal ovaries Electronically Signed: Fabian Chun DO at 19:06 EDT Reading Location ID and State: [address] [place] [address] Tel [phone], Service support , Discharge Plan Triage Chief Complaint: Vag Bleeding ED Provider: Robel Garcia Dx/Rx/DC Orders Clinical Impression: Miscarriage Instructions: Miscarriage Dc Primary Care Provider: Roderick Martinez Referrals: Kvng Gandhi MD [Med Staff - Active Staff] - Activity Restrictions/Additional Instructions: Please follow-up with your LEGAL SERVICES MANAGER at the next available appointment. If you do not have an LEGAL SERVICES MANAGER 1 has been provided for you. Please return if you develop suddenly worsening abdominal pain. Heavy vaginal bleeding that is accompanied by lightheadedness, dizziness, fatigue, shortness of breath or chest pain Disposition Disposition: Home, Self Care Discharge Date/Time: 07/30/22 20:52
== END 2022-07-30 20:52 | disposition home or self-care (01) ==
PROVIDERS: Emergency Provider Emergency Medicine; PCP Family Medicine; Visit Provider Emergency Medicine
DX: O03.9 Complete or unspecified spontaneous abortion without complication (principal); F17.210 Nicotine dependence, cigarettes, uncomplicated; F17.290 Nicotine dependence, other tobacco product, uncomplicated; O99.891 Other specified diseases and conditions complicating pregnancy; Z3A.01 Less than 8 weeks gestation of pregnancy; R10.30 Lower abdominal pain, unspecified
CPT/HCPCS: 76817; 80048; 81002; 84702; 85025; 86900; 86901; 99282; A4216

== ENCOUNTER 2022-08-14 13:36 | Day surgery (SDC) | payer OTHER, MEDICAID, SELFPAY ==
[2022-08-14] VITALS (9 sets, daily range): BP systolic 118–134; BP diastolic 72–84; PULSE 68–127; RESP 16–20; TEMP 35.9–37.2; O2SAT 96–100; BMI 32.1
--- NOTE | 2022-08-14 | POC_PTH ---
PATIENT: YESICA VELAZCO [place] [facility] [place] U[place][id number] AGE/SX: 27/F ROOM: RE08/14/[address]: Dr. Kvng Gandhi MD : 1995 BED: DIS: 08/14/2022 SPEC #: [id number] RECD: 08/15/22 10:09 STATUS: LUIS DEBORAH #: [id number] EDWARD: 08/14/22 00:[address]: Kvng Gandhi DEPT: SURGICAL PATHOLOGY RECD BY: Akira Paige ENTERED: 08/15/22 10:09 SP TYPE: PROD CONC OTHR DR: Dr. Roderick Martinez MD Tissues: ECTOPIC PREG Procedures: Surgery Specimen Level IV HEADER OPERATION: Diagnostic laparoscopy, removal ectopic PRE-OP DIAGNOSIS: Right lower quadrant pain and suspected ectopic TISSUE SUBMITTED: Suspected ectopic MICROSCOPIC DIAGNOSIS Suspected ectopic , removal: Fragments of organizing blood clot. See comment. AM:kolton 08/18/2022 COMMENT No chorionic villi, decidualized tissue or trophoblastic cells are seen. Clinical correlation is suggested. Case has been reviewed in consultation with Dr. Abad who concurs with the above diagnosis. IDC:SJ MICROSCOPIC DESCRIPTION Slides are reviewed. GROSS DESCRIPTION Received in fixative is one container labeled with the patient's name and designated suspected ectopic . The specimen consists of multiple irregular fragments of blood clots measuring in aggregate 5 x 3 x 0.2 cm. No tissue is identified. The entire specimen is submitted in two cassettes. / MIN:kolton 08/15/2022 TC:5 CPT: 57173
[2022-08-14] MEDS: 0.9% Normal Saline 1,000 ML 1000 ML IV (14:09)
[2022-08-14 14:12] LABS: Absolute Lymphocyte Count 1.37 X10^3/uL (0.83-4.51); Absolute Neutrophil Count 4.2 X10^3/uL (2.0-7.7); Basophil# 0.02 X10^3/uL; Basophil% 0.3 % (0-1); Eosinophil# 0.03 X10^3/uL; Eosinophils% 0.5 % (0-5); Hematocrit 31.8 % (37-47); Hemoglobin 10.1 g/dL (12.0-15.0); Lymphocyte # 1.37 X10^3/ul (0.83-4.51); Lymphocyte % 22.9 % (19-41); Mean Corp Hgb Conc 31.8 g/dL (32-36); Mean Corpuscular Hgb 26.2 pg (27.0-32.0); Mean Corpuscular Volume 82.6 fL (81-99); Mean Platelet Vol. 9.7 fl (6.2-12.0); Monocyte# 0.36 X10^3/uL; NRBC Flagged by Analyzer 0 % (0-5); Neutrophil # 4.17 X10^3/uL (2.7-7.7); Platelet Count 287 K/mm3 (150-450); RBC Distribution Width SD 45.1 fl (35.1-43.9); Red Blood Count 3.85 M/mm3 (4.2-5.4)
--- NOTE | 2022-08-14 14:13 | EDS_ITS ---
HPI HPI - GI History of Present Illness Chief Complaint: Abd Pain Narrative Narrative: 27-year-old female, had a recent miscarriage on 08/01/2022. She states that her vaginal bleeding has ceased. She does not have an appointment until next week with an BREAD ICER to see if she has any retained products of conception. Of note, she states that today at around 1230 after eating, approximately an hour and a half ago, she had developed abdominal pain. It is a diffuse abdominal pain anywhere from the epigastrium to periumbilical, and she is also having pain in her pelvis. She denies any fevers or chills. No nausea or vomiting. No exacerbating or alleviating factors to her diffuse abdominal pain. She states that she had a normal bowel movement prior to arrival but thought maybe she was constipated. Past surgical history includes C-sections. She de nies having diarrhea. No dysuria or hematuria. Her pain is getting worse from when it initially began. [facility] Medical History COVID Miscarriage Home Medications ibuprofen 200 mg tablet 400 mg PO Q6H PRN Pain 08/14/22 [History Last Taken 08/14/22 13:00] Allergy/AdvReac Type Severity Reaction Status Date / Time No Known Allergies Allergy Verified 07/30/22 16:58 Surgical History History of Social History Smoking Status: Current every day smoker tobacco type: cigarettes and e- cigarettes EXAM Physical Exam Narrative Exam Narrative: Afebrile. Vital signs noted. HEENT: Normocephalic. Atraumatic. PERRL, EOMI. Neck soft and supple. No point tenderness or step off. Cardiovascular: Regular rate and rhythm. No murmurs, rubs, or gallops appreciated. Respiratory: No tachypnea. Lungs clear to auscultation bilaterally. Gastrointestinal: Abdomen soft, diffuse tenderness to palpation, with normoactive bowel sounds. No rebound or guarding. Neurological: Awake. Alert. Nonfocal, nonlateralizing. Skin: No rash. Normal color. No pallor. Musculoskeletal: No pedal edema. Full range of motion extremities. Const Vital Signs: 08/14/22 13:37 08/14/22 15:37 08/14/22 15:59 Temperature 96.7 F L 97.8 F Temperature Source Temporal Temporal Pulse Rate 90 78 78 Respiratory Rate 18 16 16 Blood Pressure 123/82 H 118/78 Blood Pressure Mean 95 91 Pulse Ox 100 98 99 Oxygen Delivery Method Room Air Room Air Room Air MDM MDM MDM Narrative Medical decision making narrative: Comprehensive work-up was pursued. Laboratory work shows WBC count of 6.0, hemoglobin stable at 10.1, hematocrit 31.8. Platelet count normal at 287. Electrolyte panel shows glucose elevated appropriately at 123 with a normal anion gap/low anion gap of 4. Other electrolytes are grossly unremarkable. AST low at 9 with ALT of 15 and a normal alk phos. Lipase is normal at 80. Her serum test is positive, but I do feel that this may be secondary to her recent miscarriage. I will obtain an hCG quantitative measurement. I had ordered a CT of the abdomen and pelvis but given her elevated serum test, I will hold off on this. Her quantitative beta-hCG is elevated at 2688. This is higher than it was when she was seen here on 07/30/2022. Ultrasound shows a right adnexal mass with free fluid in the pelvis. It is noted that while it does not necessarily appear as an ectopic , there is still concern and it cannot be ruled out. I discussed the patient with Dr. Kvng Gandhi with BREAD ICER. With the concern for ectopic , he will take her to the OR. He saw her in the emergency department. Disposition is admit to the OR in stable condition. Lab Data Attestation: I reviewed the patient's lab results. Labs: Laboratory Results - last 24 hr 08/14/22 08/14/22 08/14/22 14:05 14:05 14:05 WBC 6.0 RBC 3.85 L Hgb 10.1 L Hct 31.8 L MCV 82.6 MCH 26.2 L MCHC 31.8 L RDW Std Deviation 45.1 H RDW Coeff of Vinay 15.0 H Plt Count 287 MPV 9.7 Immature Gran % (Auto) 0.300 Neut % (Auto) 70.0 Lymph % (Auto) 22.9 [place] % (Auto) 6.0 Eos % (Auto) 0.5 Baso % (Auto) 0.3 Absolute Neuts (auto) 4.2 Absolute Lymphs (auto) 1.37 Nucleated RBC % 0 Sodium 137 Potassium 3.5 Chloride 104 Carbon Dioxide 29.0 Anion Gap 4 L BUN 16 Creatinine 0.79 Estim Creat Clear Calc 81.43 Est GFR (MDRD) Af Amer 113 Est GFR (MDRD) Non-Af 94 BUN/Creatinine Ratio 20.4 H Glucose 123 H Calcium 9.0 Total Bilirubin 0.90 AST 9 L ALT 15 Alkaline Phosphatase 61 Total Protein 7.2 Albumin 3.7 Globulin 3.5 Albumin/Globulin Ratio 1.1 Lipase 80 HCG, Quant Serum , Qual POSITIVE H Urine Color Urine Clarity Urine pH Ur Specific [place] Urine Protein Urine Glucose (UA) Urine Ketones Urine Occult Blood Urine Nitrite Urine Bilirubin Urine Urobilinogen Ur Leukocyte Esterase Urine RBC Urine WBC Ur Squamous Epith Cells Amorphous Sediment Urine Bacteria Urine Mucus Blood Type Antibody Screen 08/14/22 08/14/22 08/14/22 14:05 14:05 15:49 WBC RBC Hgb Hct MCV MCH MCHC RDW Std Deviation RDW Coeff of Vinay Plt Count MPV Immature Gran % (Auto) Neut % (Auto) Lymph % (Auto) [place] % (Auto) Eos % (Auto) Baso % (Auto) Absolute Neuts (auto) Absolute Lymphs (auto) Nucleated RBC % Sodium Potassium Chloride Carbon Dioxide Anion Gap BUN Creatinine Estim Creat Clear Calc Est GFR (MDRD) Af Amer Est GFR (MDRD) Non-Af BUN/Creatinine Ratio Glucose Calcium Total Bilirubin AST ALT Alkaline Phosphatase Total Protein Albumin Globulin Albumin/Globulin Ratio Lipase HCG, Quant 2688 H Serum , Qual Urine Color Yellow Urine Clarity Sl. Cloudy Urine pH 6.0 Ur Specific [place] 1.025 Urine Protein 30 H Urine Glucose (UA) Normal Urine Ketones 15 H Urine Occult Blood 250 H Urine Nitrite Negative Urine Bilirubin Negative Urine Urobilinogen 1 H Ur Leukocyte Esterase 25 H Urine RBC 50-100 SEEN Urine WBC 0-5 SEEN Ur Squamous Epith Cells 5-10 SEEN Amorphous Sediment 1+ URATE Urine Bacteria 0 SEEN Urine Mucus 0 SEEN Blood Type A POSITIVE Antibody Screen NEGATIVE Radiography Diagnostic Testing: Clinical Impression(s) from Imaging Studies Obstetrics Ultrasound 08/14/22 14:40 IMPRESSION: 1. No evidence of intrauterine . Fluid is seen within the endometrial canal. 2. Soft tissue mass in the right adnexa. This does not have the appearance of an ectopic but was not present on the earlier examination. 3. Moderate free fluid now noted within the pelvis. The possibility of ectopic cannot be entirely ruled out in the presence of free fluid. Correlation with serial beta hCG suggested. Electronically Signed: Fabian Chun DO at 16:09 EST Reading Location ID and State: [address] [place] [address] Tel [phone], Service support , Discharge Plan Dx/Rx/DC Orders Clinical Impression: Ectopic , Abdominal pain, Pelvic pain Disposition Disposition: Acute Care [facility] [place] Discharge Date/Time: 08/14/22 17:28
[2022-08-14 14:20] LABS: Internal QC Validated? YES +Cl - CLEAR BKGD
[2022-08-14 14:23] LABS: Pregnancy, Serum, hCG Quali. POSITIVE Negative
[2022-08-14 14:28] LABS: ALB/GLOB Ratio 1.1 RATIO (0.9-2.4); AST(SGOT) 9 U/L (15-37); Alanine Aminotransfer ALT/SGPT 15 U/L (13-56); Albumin, Serum 3.7 g/dL (3.2-5.0); Alkaline Phosphatase 61 U/L (45-117); Anion Gap 4 (5-15); BUN 16 mg/dL (7-18); BUN/Creat Ratio 20.4 RATIO (10-20); Chloride 104 mmol/L (98-107); Creatinine, Serum 0.79 mg/dL (0.55-1.02); EST Glomerular Filtration Rate 94 mL/min (>60); Est Glom Filt Rate - Afr Amer 113 mL/min (>60); Estimated Creatinine Clearance 81.43 ml/min; Globulin 3.5 g/dL (2.2-4.2); Glucose 123 mg/dL (74-106); Lipase 80 U/L (73-393); Potassium 3.5 mmol/L (3.5-5.1); Protein, Total 7.2 g/dL (6.4-8.2); Sodium Level 137 mmol/L (136-145)
--- NOTE | 2022-08-14 14:40 | US_ITS ---
STUDY: FIRST TRIMESTER OBSTETRICAL ULTRASOUND REASON FOR EXAM: Female, 27 years old pelvic pain. Recent miscarriage. LMP: Unknown. TECHNIQUE: Transvaginal TECHNICAL QUALITY: Adequate. PRIOR ULTRASOUND: July 30, 2022. FINDINGS: There is no demonstrated intrauterine gestational sac. The uterus measures 8.0 x 6.2 x 4.2 cm. The myometrium is heterogenous without distinct fibroid. The endometrium measures 8 mm in thickness and contains fluid within its lumen. There are scattered adjacent calcifications. The cervix is closed. The right ovary measures 2.8 x 2.6 x 2.5 cm. There are multiple follicles of the right ovary without a dominant cyst. There is a 4.0 x 3.5 x 2.6 cm soft tissue mass in the right adnexa. Abnormal vascularity and Doppler imaging. The left ovary measures 3.6 x 2.0 x 1.9 cm. There are multiple follicles of the left ovary without a dominant cyst. There is no visualized left adnexal mass or complex lesion. Normal vascularity on Doppler imaging. There is moderate fluid in the cul de sac. US/Transvaginal w/Preg US IMPRESSION: 1. No evidence of intrauterine . Fluid is seen within the endometrial canal. 2. Soft tissue mass in the right adnexa. This does not have the appearance of an ectopic but was not present on the earlier examination. 3. Moderate free fluid now noted within the pelvis. The possibility of ectopic cannot be entirely ruled out in the presence of free fluid. Correlation with serial beta hCG suggested. Electronically Signed: Fabian Chun DO at 16:09 EST ,
[2022-08-14 15:05] LABS: Bacteria 0 SEEN /hpf (None Seen); Mucous, Urine 0 SEEN /hpf (<or=2+)
[2022-08-14 15:11] LABS: hCG Titer Quant., Serum 2688 mIU/mL (1-3)
[2022-08-14 15:39] LABS: Color, Urine Yellow (Yellow); Glucose, Dipstick Normal (Normal); Ketone-Dipstick 15 mg/dl (Negative); Leukocyte Esterase-Dipstick 25 /ul (Negative); Nitrite-Dipstick Negative (Negative); Occult Blood-Urine 250 /ul (Negative); Protein-Dipstick 30 mg/dl (Negative); Specific Gravity, Urine 1.025 (1.002-1.030); Urine Bilirubin Dipstick Negative (Negative); Urine Clarity Sl. Cloudy (Clear); Urine Urobilinogen 1 mg/dl (Normal)
[2022-08-14 15:49] LABS: Amorphous Sediment 1+ URATE; Red Blood Cells-Urine 50-100 SEEN /hpf (0-5); Squamous Epithelial Cells - UA 5-10 SEEN /hpf (5-10); White Blood Cells 0-5 SEEN /hpf (0-5)
[2022-08-14] MEDS: Morphine 4 MG/ML Syringe IV (16:10)
--- NOTE | 2022-08-14 17:12 | PCM.HP.BLA ---
History and Physical Date of Admission: 08/14/22 Chief complaint: Right lower quadrant pain History present illness: 27-year-old G3, P2 with sudden onset right lower quadrant pain. Initially earlier this month with vaginal bleeding and positive test. Denies headache, vision change, chest pain, shortness of breath, nausea vomit, right upper quadrant pain. Obstetric history: with a history of 2 deliveries at term Past medical history: None Medications: None Allergies: No known drug allergies Past surgical history: section x2 Social history: Vapes, Denies alcohol or drug use Review of systems: Besides above pertinent positives a full review of systems was performed and found to be negative Physical exam: Vitals: Blood pressure 123/82 pulse 78 respiratory rate 16 temperature 97.8 ?F SPO2 99% on room air General: Mild distress HEENT: Normocephalic/atraumatic no cervical lymphadenopathy Cardiac/respiratory: No use of accessory muscles, nonlabored breathing Abdomen: Soft, mildly tender in right lower quadrant, nondistended Extremities: No peripheral edema normal peripheral pulses Psych: Normal affect. Normal demeanor nonpressured speech Labs: White blood cell count 6 hemoglobin 10.1 hematocrit 31.8% platelets 287. Sodium 137 potassium 3.5 creatinine 0.79. hCG 2688. Blood type a positive antibody negative Diagnostic imaging: Ultrasound of pelvis with pelvic fluid noted along with mass on right adnexa suspicious for ectopic Assessment plan: 27-year-old with right lower quadrant pain and suspected ectopic based on exam, lab work and imaging studies. No IUP seen with rising hCG and now right lower quadrant pain with fluid in pelvis along with adnexal mass, working diagnosis ectopic . Educated patient on findings and discussed ectopic pregnancies. Educated patient on need for diagnostic laparoscopy, removal of ectopic , possible salpingostomy, possible salpingectomy, possible oophorectomy. Discussed risk benefits alternatives. Patient states understanding and wished to proceed. All questions were answered and consent was signed. Patient educated on blood transfusion risk benefits alternatives, patient states understanding and wishes for blood transfusion if needed. Discussed case with anesthesia, surgery team called in. For surgery now
--- NOTE | 2022-08-14 17:22 | ED.RN ---
REPORT CALLED TO PACU AT THIS TIME. PACU STATES THEY ARE READY FOR PT TO COME TO PACU
[2022-08-14] MEDS: Lactated Ringers 1,000 ML 15 ML IV (17:48)
--- NOTE | 2022-08-14 20:23 | PCM.OPRPT ---
Report of Operation Date of Procedure: 08/14/22 Pre-Operative Diagnosis: Suspected ectopic Post-Operative Diagnosis: Right ectopic Surgery/Procedure Performed:: Diagnostic laparoscopy removal of ectopic Description of Surgical Findings:: Surgeon: Kvng Gandhi MD Anesthesia: General EBL: 25 cc Urine output: 400 cc none IV fluids: 700 cc Complications: None Specimen: Suspected ectopic Findings: Fimbria of right fallopian tube with 4 cm clot/tissue. Fallopian tube overall intact. Right ovary within normal limits. Left fallopian tube and ovary within normal limits. Normal uterus and cervix. Small amount of fluid in posterior cul-de-sac Consent: Patient with abdominal pain and suspected ectopic in need of diagnostic laparoscopy and removal of ectopic . Patient understands risk of the procedure include but are not limited to visceral or vascular injury, prolonged hospitalization, blood loss need for transfusion, reoperation. Patient state understanding wish to proceed. All questions were answered and consent was signed Procedure: Patient was brought back to the OR where general anesthesia was found to be adequate. Patient was prepared and draped in a dorsolithotomy position with yellowfin stirrups. A weighted speculum was placed in the posterior aspect of vagina and cervical dilators were used to dilate cervix. Uterine manipulator was placed. Varies needle was inserted at the umbilicus water safety test was passed. Abdomen was insufflated. 5 mm supraumbilical midline trocar was inserted under direct visualization. Laparoscope was inserted and above findings were noted. Left lower quadrant 5 mm trocar was inserted under direct visualization, right lower quadrant 5 mm trocar was inserted under direct visualization. Using an atraumatic grasper and a suction visual merchandising assistant pathology was collected and sent to pathology. Ectopic was removed from abdominal cavity and the end of the primary. Using atraumatic grasper and the remaining products of conception in the right fallopian tube were 'teased' out of the end of the fimbria. Abdomen was irrigated. Good hemostasis was noted. Right fallopian tube was reinspected posterior cul-de-sac and left fallopian tube along with bilateral ovaries were reinspected and good hemostasis was noted. No other pathology noted.
--- NOTE | 2022-08-14 20:30 | DCINST_ITS ---
Discharge Instructions Diet Discharge Diet: No restrictions Activity Discharge Activity: Return to Normal Activity, May Drive, May Shower and - (No tub baths for 2 weeks) May resume sexual activity in: 4-6 weeks Lifting Restrictions: No lifting over 25 pounds for 2 to 3 weeks Dressing / Incision Call your doctor if your incision/area has: Continuous Slow Oozing and Foul Smelling Discharge Call your doctor if you observe: Fever of 101 or Higher, Shortness of breath and Chest pain Follow Up Care Please Follow Up With: Kvng Gandhi MD When: 2 weeks postoperatively Test Results: Test results from this visit will be discussed in further detail at your follow- up appointment, if applicable. Discharge Plan Admission Attending Provider: Kvng Gandhi Primary Care Provider: Roderick Martinez Discharge Orders/Prescriptions Prescriptions: No Action ibuprofen 200 mg Tablet 400 mg PO Q6H PRN (Reason: Pain) Referrals / Follow Up: Roderick Martinez MD [Primary Care Provider] - Disposition Disposition (needs filled in before D/C Order can be placed): Home, Self Care
[2022-08-14] MEDS: Ketorolac 30 MG/ML Syringe IV ×2 (20:45→20:46)
[2022-08-16] VITALS: BP 118/87; PULSE 82; RESP 16; TEMP 36.8; O2SAT 96
== END 2022-08-14 22:19 | disposition home or self-care (01) ==
LOC: ED 14:07 → SDC 16:17
PROVIDERS: Emergency Provider Emergency Medicine; PCP Family Medicine; Visit Provider Obstetrics & Gynecology
PROC: 10T24ZZ Resection of Products of Conception, Ectopic, Percutaneous Endoscopic Approach (ICD-10-PCS; CPT 59150; principal; 2022-08-14 19:45)
DX: O00.101 Right tubal pregnancy without intrauterine pregnancy (principal); O99.330 Smoking (tobacco) complicating pregnancy, unspecified trimester; F17.210 Nicotine dependence, cigarettes, uncomplicated; Z86.16 Personal history of COVID-19
CPT/HCPCS: 49320; 00840; 76817; 80053; 81001; 83690; 84702; 84703; 85025; 86850; 86900; 86901; 88305; 99281; J7030; J7120; A4216; J2405

== ENCOUNTER → 2022-09-02 | Outpatient (CLI) | payer OTHER, MEDICAID, SELFPAY ==
[2022-09-02 17:47] LABS: hCG Titer Quant., Serum 5 mIU/mL (1-3)
== END | disposition home or self-care (01) ==
LOC: WOBLAB 15:31
PROVIDERS: PCP Family Medicine; Visit Provider Obstetrics & Gynecology
DX: O00.101 Right tubal pregnancy without intrauterine pregnancy (principal)
CPT/HCPCS: 36415; 84702

== ENCOUNTER 2023-04-24 19:38 | Emergency (ER) | payer OTHER, MEDICAID, SELFPAY ==
[2023-04-24 19:39] VITALS: BP 118/74; PULSE 77; RESP 16; TEMP 36.2; O2SAT 100; BMI 29.7
[2023-04-24 19:44] VITALS: BP 118/74; PULSE 77; RESP 16; TEMP 36.2; O2SAT 100
--- NOTE | 2023-04-24 20:21 | EDS_ITS ---
HPI History of Present Illness Chief Complaint: Abd Pain Detail of Chief Complaint: Global throbbing headache with photophobia and sonophobia not abdominal kelby Informant: patient Onset/Context/Timing Onset: Yesterday Context: Sudden Timing: Continuous Quality -Headache: Positive for Similar Prior Headaches (Similar except for duration), Throbbing and Tightness Location: Global Current Severity: Moderate Maximum Severity: Severe Worsened by: Sound and light Relieved by: Nothing Associated Symptoms/Injury Associated Symptoms: Positive for Nausea and Photophobia; Negative for Fever, Vomiting, Sore Throat, Sinus Pressure, Numbness, Tingling, Preceding Aura, Visual Changes, Blurred Vision or Visual Loss Injury - WALKER: Negative for Direct Trauma Narrative Narrative: Patient is a 28-year-old woman with history of migraine headaches. She presents with headache that is been present for the past 2 days with photophobia and sonophobia. She reports nausea. She is on no preventative/prophylactic medication. She states she was on a blood thinner when she was diagnosed with COVID. She is not presently on anticoagulant. She denies head trauma. She denies double vision, blurred vision or loss of vision. She denies renal ears or decreased hearing. No trouble speech or swallowing. Denies neck pain or neck stiffness. She denies cardiac respiratory symptoms. She denies dysuria, frequency, urgency or hematuria. She denies paresthesia, anesthesia medics. Denies problems with balance or coordination. Prior similar symptoms: No Recent Illness/Hospitalization: No [facility] Medical History COVID Miscarriage Home Medications ibuprofen 200 mg tablet 400 mg PO Q6H PRN Pain 08/14/22 [History Last Taken 08/14/22 13:00] Allergy/AdvReac Type Severity Reaction Status Date / Time No Known Allergies Allergy Verified 07/30/22 16:58 Surgical History History of Social History (Updated 04/24/23 @ 20:[address] Leonidas Joyner MD) Smoking Status: Current every day smoker tobacco type: cigarettes and e- cigarettes substance use type: does not use ROS ROS ED Constitutional Constitutional ED: Denies chills, fever(s), subjective, sweats or weight loss Eyes Eyes: Reports other Details: Positive photophobia ; Denies blurry vision, change in vision or diplopia ENT ENT ED: Denies ear pain, rhinorrhea or sore throat Cardiovascular Cardiovascular: Denies chest pain, palpitations or racing heartbeat Respiratory/Chest Respiratory/Chest: Denies cough, dyspnea or dyspnea on exertion Gastrointestinal Gastrointestinal: Reports nausea; Denies abdominal pain, constipation, diarrhea or vomiting Genitourinary Genitourinary ED: Denies dysuria, hematuria or urinary frequency Musculoskeletal Musculoskeletal: Denies arthralgias, back pain, myalgias or neck pain Integumentary Denies rash Neurologic Neurologic: Reports headache(s); Denies paresthesias or weakness Endocrine Endocrinology: Denies polydipsia, polyphagia or polyuria Hematologic/Lymphatic Hematologic/Lymphatic: Denies easy bleeding or easy bruising EXAM Physical Exam Const Vital Signs: 04/24/23 19:39 04/24/23 19:44 Temperature 97.2 F L 97.2 F L Temperature Source Temporal Temporal Pulse Rate 77 77 Respiratory Rate 16 16 Blood Pressure 118/74 118/74 Blood Pressure Mean 88 88 Pulse Ox 100 100 Oxygen Delivery Method Room Air Room Air Positive well nourished and well developed General Appearance ED: well developed and NAD; Negative for pallor HEENT Reports normocephalic, TM's clear and moist mucous membranes HEENT Narrative: There is no sinus tenderness. There is no facial rash noted. Posterior pharynx is normal. atraumatic Tympanic Membrane ED: Yes TM's clear Eyes PERRL and EOMs intact bilaterally General Eye ED: Negative for pale conjunctiva or scleral icterus Neck no lymphadenopathy, supple, no meningeal signs and no JVD Resp normal respiratory effort and clear to auscultation bilaterally Cardio regular rate, regular rhythm, S1 normal heart sound, S2 normal heart sound and no murmurs GI non-tender and non-distended Back/Spine no CVA tenderness Extremity normal to inspection, full ROM and normal capillary refill Neuro oriented x3, CN's II-XII intact bilaterally and no sensory deficits noted Neuro Narrative: There is no dysmetria. There is no clonus or Babinski sign. [place] Coma Scale: document GCS findings Spontaneous Obeys Commands Oriented 15 Sensorium / Orientation: awake and alert Coordination / Balance: [id number] test normal Speech: speech normal Gait (Neuro): normal gait Motor Exam: strength 5/5 throughout Psych mental status grossly normal Skin General Skin Exam: elasticity normal and turgor normal; Negative for jaundice or pallor MDM MDM MDM Narrative Medical decision making narrative: With protracted headache consistent with migraine. She was treated with IV Toradol, Reglan and Benadryl. Since her neuro exam is normal there is no indication for radiologic imaging i.e. CT or MRI. Since she does not have fever there is no concern for meningitis. There are no vesicular rashes to suggest herpes varicella-zoster. Patient was reassessed at 2250. Her headache has improved. She was discharged home Discharge Plan Triage Chief Complaint: Abd Pain ED Provider: Leonidas Joyner Dx/Rx/DC Orders Clinical Impression: Intractable migraine without aura and with status migrainosus Instructions: ED, Migraine (Classical) Prescriptions: No Action ibuprofen 200 mg Tablet 400 mg PO Q6H PRN (Reason: Pain) Stand Alone Forms: ED Work / School Excuse Primary Care Provider: Roderick Martinez Referrals: Roderick Martinez MD [Primary Care Provider] - 1-2 Weeks Disposition Disposition: Home, Self Care
[2023-04-24] MEDS: Metoclopramide 10 MG/2 ML Vial IV (20:54)
[2023-04-24] MEDS: Ketorolac 15 MG/ML Vial IV (20:54)
[2023-04-24] MEDS: DiphenhydrAMINE 50 MG/ML Syringe 25 MG IV (20:54)
== END 2023-04-24 23:03 | disposition home or self-care (01) ==
PROVIDERS: Emergency Provider Emergency Medicine; PCP Family Medicine; Visit Provider Emergency Medicine
DX: G43.011 Migraine without aura, intractable, with status migrainosus (principal); F17.210 Nicotine dependence, cigarettes, uncomplicated; F17.290 Nicotine dependence, other tobacco product, uncomplicated
CPT/HCPCS: 96374; 96375; 99283; A4216

== ENCOUNTER 2023-10-31 12:07 | Emergency (ER) | payer OTHER, MEDICAID, SELFPAY ==
[2023-10-31 12:08] VITALS: BP 126/86; PULSE 86; RESP 16; TEMP 36.1; O2SAT 100; BMI 28.5
--- NOTE | 2023-10-31 12:17 | EDS_ITS ---
HPI History of Present Illness Chief Complaint: Other, Pain/Inj PFSH PFSH Medical History COVID Miscarriage Home Medications ibuprofen 200 mg tablet 400 mg PO Q6H PRN Pain 08/14/22 [History Last Taken 08/14/22 13:00] Allergy/AdvReac Type Severity Reaction Status Date / Time No Known Allergies Allergy Verified 10/31/23 12:08 Surgical History History of Social History (Updated 04/24/23 @ 20:[address] Leonidas Joyner MD) Smoking Status: Current every day smoker tobacco type: cigarettes and e- cigarettes substance use type: does not use EXAM Physical Exam Const Vital Signs: 10/31/23 12:08 Temperature 97.0 F L Temperature Source Temporal Pulse Rate 86 Respiratory Rate 16 Blood Pressure 126/86 H Blood Pressure Mean 99 Pulse Ox 100 Oxygen Delivery Method Room Air MDM MDM MDM Narrative Medical decision making narrative: HISTORY OF PRESENT ILLNESS: 28-year-old female presents with concern for possible air. First noticed a few days ago. REVIEW OF SYSTEMS: Pertinent positives: Bumps behind ear Pertinent negatives: [] PHYSICAL EXAM: Nursing triage notes reviewed, Vital signs reviewed Constitutional: please see mdm HENT: MMM, no mastoid tenderness, Eyes: Pupils equal round and reactive to light, Extraocular muscles intact Neck: No stridor, no JVD, full neck ROM Lungs: Clear to auscultation, No wheezing or rales. No increased work of breathing, no conversational dyspnea, no accessory muscle use, no nasal flaring. No respiratory distress noted Heart: Regular rate and rhythm, No murmurs, No rubs and No gallops, 2+ distal pulses (radial, femoral, posterior tibial) in all extremities Skin: MEDICAL DECISION MAKING: Chief Complaint: Bumps behind ear MDM Narrative: Patient was hemodynamically stable, afebrile, nontoxic-appearing. Exam I considered the following differential diagnosis: [] ALL IMAGES (IF OBTAINED) HAVE BEEN PERSONALLY REVIEWED AND INTERPRETED BY MYSELF. [] The patient and/or family, caregivers express understanding. The patient and/or family, caregivers agrees with the plan. Shared decision making: I will have a discussion with the patient and or visitors regarding risk/benefits of further testing or admission. They will be made aware of of the risk/benefits inherent in this decision they will be given the opportunity to voice understanding. Total critical care time today provided was at least 0 [] minutes. This excludes separately billable procedures. Critical care time (if documented) is secondary to the patient having high probability of clinically significant/life threatening deterioration in the patient's condition which required my urgent intervention. Impression: [] Dispo: [] This note was generated with [employer] dictation software. It may contain incorrect words, spelling, and punctuation that were not noted in review of the chart prior to signing. Discharge Plan Triage Chief Complaint: Other, Pain/Inj ED Provider: Robel Garcia Dx/Rx/DC Orders Prescriptions: No Action ibuprofen 200 mg Tablet 400 mg PO Q6H PRN (Reason: Pain) Primary Care Provider: Roderick Martinez Referrals: Roderick Martinez MD [Primary Care Provider] -
--- NOTE | 2023-10-31 12:24 | EX.ED.DYSGE1 ---
HPI History of Present Illness Chief Complaint: Other, Pain/Inj Detail of Chief Complaint: sore lump R ear/face Informant: patient Narrative Narrative: Patient presents for 2 mildly sore bumps that have been in front of her right ear for the past 5 days. She is more concerned about the bump and she is about the pain or other symptoms. She states she thinks there was some discomfort in her ear near the beginning but no longer and she denies any ear discharge or trouble hearing. She has a little bit of a runny nose that is clear. No cough or sore throat or trouble moving her head or neck, and no headaches. No fevers or chills or other symptoms. [facility] Medical History COVID Miscarriage Home Medications ibuprofen 200 mg tablet 400 mg PO Q6H PRN Pain 08/14/22 [History Last Taken 08/14/22 13:00] mupirocin 2 % topical ointment 1 applic topical BID #15 grams 10/31/23 [Rx Last Taken Unknown] Allergy/AdvReac Type Severity Reaction Status Date / Time No Known Allergies Allergy Verified 10/31/23 12:08 Surgical History History of Social History Smoking Status: Current every day smoker tobacco type: cigarettes and e-cigarettes substance use type: does not use ROS ROS ED Constitutional Constitutional ED: Denies chills or fever(s) ENT ENT ED: Reports as per HPI and rhinorrhea; Denies sore throat Respiratory/Chest Respiratory/Chest: Denies cough or dyspnea Integumentary Denies abscess or rash Neurologic Neurologic: Denies headache(s), paresthesias or weakness EXAM Physical Exam Const Vital Signs: 10/31/23 12:08 Temperature 97.0 F L Temperature Source Temporal Pulse Rate 86 Respiratory Rate 16 Blood Pressure 126/86 H Blood Pressure Mean 99 Pulse Ox 100 Oxygen Delivery Method Room Air Positive well nourished and well developed General Appearance ED: well developed and NAD HEENT Reports moist mucous membranes HEENT Narrative: POP clear Mildly tender mobile single right anterior tender lymph node, and right next to it is separately what appears to be a skin pimple that is erythematous and there is no abscess or fluctuance and it is minimally tender. The mobile lymph node is more tender than the pimple. It is not a pustule or bulla. Separate from all of this, there is a superficial cervical lymph node in the right submandibular area. It is also mobile and mildly tender. There is no other lymphadenopathy. There is no mastoid tenderness, swelling, erythema. TMs and EACs normal bilaterally no pain with manipulation of the pinna or the tragus on the right. Eyes PERRL and EOMs intact bilaterally Neck supple Resp normal respiratory effort and clear to auscultation bilaterally Neuro oriented x3, CN's II-XII intact bilaterally and no sensory deficits noted Motor Exam: strength 5/5 throughout Psych mental status grossly normal Skin Skin Narrative: See above for right periauricular findings. No other rashes. MDM MDM MDM Narrative Medical decision making narrative: The patient was concerned about the lymphadenopathy, I think it is just reactive lymphadenopathy and she is reassured. The only thing I can see to actually treat is the pimple which I would recommend doing [id number] pimple cream on and I am prescribing her some topical mupirocin if she would like to try that as well. Discharge Plan Triage Chief Complaint: Other, Pain/Inj ED Provider: Michael Rodriguez Dx/Rx/DC Orders Clinical Impression: Periauricular adenopathy, Skin pimple Instructions: Lymphadenopathy Prescriptions: New mupirocin 2 % ointment 1 applic topical BID Qty: 15 0RF No Action ibuprofen 200 mg Tablet 400 mg PO Q6H PRN (Reason: Pain) Primary Care Provider: Roderick Martinez Referrals: Roderick Martinez MD [Primary Care Provider] - 1 Week if not improving Disposition Disposition: Home, Self Care
--- OUTSIDE RECORDS SUMMARY | 2023-10-31 12:50 | XMS RPT_ITS | CCD ---
Author Name Unknown Address [address] [place] [address] Organization [facility] Care Team Providers Care Physician Anesthesiologist Name Role Phone Jennifer Martinez MD Primary Care Provider JENNIFER MARTINEZ Primary Care JENNIFER Blount Attending JENNIFER Blount Primary Care UnavailJENNIFER Garcia Primary Care UnavailVIVIANE Norwood Attending JENNIFER Bowens Primary Care UnavailJENNIFER Garcia Primary Care Unavailab mayer Allergies Allergy Classification Reported Allergen(s) Allergy Type Date of Onset Reaction(s) Facility (1 source) Cat Dander Drug Intolerance 4 Rash, Itching [facility] Medications Completed/Discontinued Medications Medication Drug Class(es) Dates Sig (Normalized) Sig (Original) cholecalciferol 1.25 mg oral capsule (13 sources) Vitamin D Start: 03-29-2021 End: 10-08-2023 take 1 capsule by mouth every week cholecalciferol, Vitamin D3, (VITAMIN D3) 1,250 mcg (50,000 unit) cap capsule Indications: Vitamin D deficiency Take 1 capsule by mouth one time a week. 12 capsule 0 02/03/2022 10/08/2023 Discontinued Problems Active Problems Problem Classification Problem Date Documented Da te Episodic/Chronic Abdominal pain (1 source) Right lower quadrant pain; Translations: [Right lower quadrant pain] Episodic Cancer of cervix (2 sources) Atypical squamous cells of undetermined significance on cervical Papanicolaou smear; Translations: [Atypical squamous cells of undetermined significance on cytologic smear of cervix (ASC-US)] Onset: 10-08-2023 10-08-2023 Episodic Coma; stupor; and brain damage (1 source) Daytime somnolence; Translations: [Somnolence] Episodic Malaise and fatigue (1 source) Fatigue; Translations: [Other fatigue] Episodic Mood disorders (9 sources) Recurrent major depressive episodes, moderate ; Translations: [Major depressive disorder, recurrent, moderate] Chronic Nutritional deficiencies (4 sources) Vitamin D deficiency; Translations: [Vitamin D deficiency, unspecified] Chronic Other female genital disorders (1 source) Vaginal bleeding; Translations: [Abnormal uterine and vaginal bleeding, unspecified] Chronic Other nutritional; endocrine; and metabolic disorders (5 sources) Obesity; Translations: [Other obesity due to excess calories] 03-28-2021 Chronic Other nutritional; endocrine; and metabolic disorders (2 sources) Obesity caused by energy imbalance; Translations: [Other obesity due to excess calories] 03-28-2021 Chronic Other nutritional; endocrine; and metabolic disorders (1 source) Overweight in adulthood with body mass index of 25 or more but less than 30; Translations: [Overweight] 10-11-2023 Episodic Other upper respiratory infections (1 source) Acute upper respiratory infection; Translations: [Acute upper respiratory infection, unspecified] 06-30-2023 Episodic Substance-related disorders (7 sources) Marijuana user; Translations: [Cannabis use, unspecified, uncomplicated] 03-28-2021 Episodic Past or Other Problems Problem Classification Problem Date Documented Da te Episodic/Chronic Disorders of teeth and jaw (1 source) Periapical abscess without sinus; Translations: [Dental infection] Onset: 05-20-2023 Episodic Nausea and vomiting (1 source) Nausea; Translations: [Nausea] Onset: 05-20-2023 Episodic Other gastrointestinal disorders (1 source) Constipation, unspecified; Translations: [Acute constipation] Onset: 05-20-2023 Episodic Other non-traumatic joint disorders (1 source) Pain in right shoulder; Translations: [Acute pain of right shoulder] Onset: 05-20-2023 Episodic Pulmonary heart disease (7 sources) Pulmonary embolism; Translations: [Single subsegmental pulmonary embolism without acute cor pulmonale] Onset: 09-16-2021 09-16-2021 Episodic Results Test Name Value Interpretation Reference Range Facil ity Vital Signs Date Time Vital Sign Value Performing Clinician Consuelo merino 10-08-2023 13:30-0500 Body weight 69.94 kg Jennifer Martinez MD Work Phone: [facility] 10-08-2023 13:30-0500 Diastolic blood pressure 74 mm[Hg] Jennifer Martinez MD Work Phone: [facility] 10-08-2023 13:30-0500 Heart rate 84 /min Jennifer Martinez MD Work Phone: [facility] 10-08-2023 13:30-0500 Respiratory rate 16 /min Jennifer Martinez MD Work Phone: [facility] 10-08-2023 13:30-0500 SaO2% (BldA) [Mass fraction] 99 % Jennifer Martinez MD Work Phone: [facility] 10-08-2023 13:30-0500 Systolic blood pressure 106 mm[Hg] Jennifer Martinez MD Work Phone: [facility] 06-30-2023 09:16-0400 Body temperature 98.4 [degF] Helen Galeas SENIOR HADOOP DEVELOPER.ROOF PANEL HANGER Work Phone: [facility] 06-30-2023 09:16-0400 Body weight 70.4 kg Helen Galeas SENIOR HADOOP DEVELOPER.ROOF PANEL HANGER Work Phone: [facility] 06-30-2023 09:16-0400 Diastolic blood pressure 82 mm[Hg] Helen Galeas SENIOR HADOOP DEVELOPER.ROOF PANEL HANGER Work Phone: [facility] 06-30-2023 09:16-0400 Heart rate 69 /min Heeln Galeas SENIOR HADOOP DEVELOPER.ROOF PANEL HANGER Work Phone: [facility] 06-30-2023 09:16-0400 Respiratory rate 18 /min Helen Galeas SENIOR HADOOP DEVELOPER.ROOF PANEL HANGER Work Phone: [facility] 06-30-2023 09:16-0400 SaO2% (BldA) [Mass fraction] 100 % Helen Galeas SENIOR HADOOP DEVELOPER.ROOF PANEL HANGER Work Phone: [facility] 06-30-2023 09:16-0400 Systolic blood pressure 120 mm[Hg] Helen Galeas SENIOR HADOOP DEVELOPER.ROOF PANEL HANGER Work Phone: [facility] 01-29-2022 14:05-0400 Body weight 78.47 kg Jennifer Martinez MD Work Phone: [facility] 01-29-2022 14:05-0400 Diastolic blood pressure 72 mm[Hg] Jennifer Martinez MD Work Phone: [facility] 01-29-2022 14:05-0400 Heart rate 80 /min Jennifer Martinez MD Work Phone: [facility] 01-29-2022 14:05-0400 Respiratory rate 14 /min Jennifer Martinez MD Work Phone: [facility] 01-29-2022 14:05-0400 SaO2% (BldA) [Mass fraction] 100 % Jennifer Martinez MD Work Phone: [facility] 01-29-2022 14:05-0400 Systolic blood pressure 116 mm[Hg] Jennifer Martinez MD Work Phone: [facility] Encounters Encounter Date Encounter Type Care Provider Facility Start: 10-08-2023 End: 10-08-2023 ambulatory JENNIFER MARTINEZ Facility:[facility] Start: 10-08-2023 End: 10-08-2023 Patient encounter procedure Jennifer Martinez MD Work Phone: [facility] Procedures Date Procedure Procedure Detail Performing Clinician Start: 06-30-2023 COVID & INFLUENZA A/ B & RSV NAAT, ROUTINE Helen Galeas APRN.ROOF PANEL HANGER Work Phone: Start: 06-30-2023 Iadna respiratry pro be & rev trnscr 3-5 targets Helen Galeas APRN.ROOF PANEL HANGER Work Phone: Start: 06-30-2023 Sars-cov-2 detection by dna/rna Helen Galeas APRN.ROOF PANEL HANGER Work Phone: Plan of Treatment Date Care Activity Detail Author Start: 06-28-2028 Urine microalbumin profile [facility] Start: 10-08-2024 Covid-19 Vaccine (#1) Covid-19 Vacci ne (#1) [facility] Immunizations Immunization Date Immunization Notes Care Provider Renae stern 06-28-2018 influenza virus vacc ine, unspecified formulation Helen Galeas APRN.ROOF PANEL HANGER Work Phone: [facility] Payers Date Payer Category Payer Medicaid [id number] 2021 Private Health Insurance [facility] PLUS [id number] 2021-Present [phone] [address] [address] [place] [address] HMO [id number] 2021 Unknown [id number] 2018 Medicaid [employer] [id number] 2018-Present [phone] [address] [place] [address] Medicaid [id number] 2018 Medicaid [id number] Social History Date Type Detail Facility Start: 03-28-2021 End: 04-24-2023 Tobacco smoking status NHIS Ex-smoker [facility] Work Phone: End: 02-11-2021 History of tobacco use Current smoker [facility] Work Phone: End: 02-11-2021 History of tobacco use Cigarette Smoker [facility] Work Phone: Start: 03-28-2021 End: 05-20-2023 Cigarettes smoked current (pack per day) - Reported 1 [facility] Start: 03-28-2021 End: 04-24-2023 Tobacco use and exposure Smokeless tobacco non-user [facility] Work Phone: Start: 01-29-2022 End: 06-30-2023 Alcohol intake Current non-drinker of alcohol (finding) [facility] Start: 09-13-2021 History SDOH Alcohol Frequency 2 [facility] Start: 09-13-2021 History SDOH Alcohol Std Drinks 1 [facility] Start: 09-13-2021 History SDOH Social Connections Phone 3 [facility] Start: 09-13-2021 History SDOH Social Connections Get Together 98 [facility] Start: 09-13-2021 History SDOH Social Connections Living 7 [facility] Start: 09-13-2021 History SDOH Physical Activity MPS 6 [facility] Start: 09-13-2021 End: 04-24-2023 Tobacco Comment vape x7 daily [facility] Start: 1995 Sex Assigned At Female [facility] Start: 01-19-2022 End: 07-30-2022 Exposure to SARS-CoV-2 (event) Not sure [facility] Start: 05-20-2023 End: 10-08-2023 Social connection and isolation panel [facility] Do you belong to any clubs or organizations such as worship groups, unions, fraternal or athletic groups, or school groups? Yes [facility] Are you now , , , , never or living with a partner? Never [facility] How often to you hav e a drink containing alcohol? 2-4 times a month [facility] How many standard dr inks containing alcohol do you have on a typical day? 1 or 2 [facility] How often do you hav e 6 or more drinks on 1 occasion? Never [facility] How hard is it for y ou to pay for the very basics like food, housing, medical care, and heating Somewhat hard [facility] Adult Depression Screening Assessment 3 [facility] Work Phone: Do you feel stress - tense, restless, nervous, or anxious, or unable to sleep at night because your mind is troubled all the time - these days [OSQ] To some extent [facility] (I/We) worried wheangela er (my/our) food would run out before (I/we) got money to buy more. Sometimes true [facility] The food that (I/we) bought just didn't last, and (I/we) didn't have money to get more. Never true [facility] At any time in the p ast 12 months, were you homeless or living in correction [including now]? No [facility] Start: 01-24-2021 Gender identity Identifies as female gender (finding) [facility] Start: 01-24-2021 Sexual orientation Heterosexual (finding) [facility] Start: 10-08-2023 Alcohol intake Current drinker of alcohol (finding) [facility] Start: 10-08-2023 Alcohol Comment rare [facility] Clinical Notes 01-29-2022 to 10-08-2023 Jennifer Martinez MD - 10/08/2023 1:32 PM Helen Nguyen, SENIOR HADOOP DEVELOPER.ROOF PANEL HANGER - 06/30/2023 9:24 AM Hiram Antonio MD - 12/01/2022 3:44 PM Vlad Chew APRN.ROOF PANEL HANGER - 07/30/2022 4:54 PM EDT Note Date & Type Note Facility 10-08-2023 Note HNO ID: [id number] Author: JENNIFER MARTINEZ MD Service: ? Author Type: Physician Type: Progress Notes Filed: 10/11/2023 13:19 Note Text: Chief Complaint Patient presents with: Physical Consult: gynocology HPI Yesica Willett is a 28 year old AA female who presents here today for Above Complaints. Denies recent hospitalizations or ER visits. No complaints today. History of depression with mild to moderate symptoms. Not seeing counseling, but is able to cope with her symptoms by talking with a friend, writing, or smoking marijuana. Would like to talk to couselor about her symptoms. 10/08/2023 1349 Last Filed Value PHQ-9 Little interest or pleasure in doing things Not at all Not at allLittle interest or pleasure in doing things. Not at all. Last Filed Value Feeling down, depressed, or hopeless More than half the days More than half the daysFeeling down, depressed, or hopeless. More than half the days. Last Filed Value Trouble falling or staying asleep, or sleeping too much Nearly every day Nearly every dayTrouble falling or staying asleep, or sleeping too much. Nearly every day. Last Filed Value Feeling tired or having little energy Several days Several daysFeeling tired or having little energy. Several days. Last Filed Value Poor appetite or overeating Several days Several daysPoor appetite or overeating. Several days. Last Filed Value Feeling bad about yourself - or that you are a failure or have let yourself or your family down Nearly every day Nearly every dayFeeling bad about yourself - or that you are a failure or have let yourself or your family down. Nearly every day. Last Filed Value Trouble concentrating on things, such as reading the newspaper or watching television Not at all Not at allTrouble concentrating on things, such as reading the newspaper or watching television. Not at all. Last Filed Value Moving or speaking so slowly that other people could have noticed. Or the opposite - being so fidgety or restless that you have been moving around a lot more than usual Not at all Not at allMoving or speaking so slowly that other people could have noticed. Or the opposite - being so fidgety or restless that you have been moving around a lot more than usual. Not at all. Last Filed Value Thoughts that you would be better off , or of hurting yourself in some way Not at all Not at allThoughts that you would be better off , or of hurting yourself in some way. Not at all. Last Filed Value If you checked off any problems, how difficult have these problems made it for you to do your work, take care of things at home, or get along with other people? -- -- PHQ-9 score 10 10 PHQ-9 Score 10 10PHQ-9 Score. 10. Last Filed Value PHQ-2 score 2 2 PHQ-2 Score 2 2 Patient longer smoking, but started vaping about 1 year. Vaping every other day. Would like help with cessation. Tried patches before without success. Not interested in rx today, will consider nicotine gum. Requesting referral to [facility] for routine exam. Last pap smear 10/2020 positive for ASCUS with negative HPV. Has not had repeat. Past medical history, appointments, medications, allergies reviewed. 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 History of chlamydia History of COVID-19 08/2021 Marijuana use Moderate episode of recurrent major depressive disorder (HCC) Pulmonary embolism (HCC) 09/08/2021 2/2 COVID Tobacco use Previous Surgical History PAST SURGICAL HISTORY Procedure Laterality Date SECTION HX 2010, 2017 x2 Family History FAMILY HISTORY Problem Relation Age of Onset Diabetes Mother Heart Mother CHF, pacemaker Hypertension Mother Patient Allergies ALLERGIES Allergen Reactions Cat Dander Rash, Itching Current Medications Current Outpatient Medications on File Prior to Visit Medication Sig cholecalciferol, vitamin D3, (VITAMIN D3 50 MCG, 2,000 UNIT, GUMMIES) Take 1 Dose by mouth once daily. polyethylene glycol 3350 (MIRALAX) 17 gram packet Take 1 Packet by mouth once daily as needed for constipation. Dissolve dose in 4 - 8 ounces of liquid and take as directed. cholecalciferol, Vitamin D3, (VITAMIN D3) 1,250 mcg (50,000 unit) cap capsule Take 1 capsule by mouth one time a week. cholecalciferol, Vitamin D3, (VITAMIN D3) 1,250 mcg (50,000 unit) cap capsule Take 1 capsule by mouth one time a week. No current facility-administered medications on file prior to visit. Social History Social History Tobacco Use Smoking status: Former Packs/day: 1.00 Years: 5.00 Additional pack years: 0.00 Total pack years: 5.00 Types: Cigarettes Quit date: 02/11/2021 Years since quittin.6 Smokeless tobacco: Never Tobacco comments: vape x7 daily Vapi (more content not included)... [facility] 10-08-2023 History of Presen t illness Narrative Chief Complaint Patient presents with: Physical Consult: gynocology HPI Yesica Willett is a 28 year old AA female who presents here today for Above Complaints. Denies recent hospitalizations or ER visits. No complaints today. History of depression with mild to moderate symptoms. Not seeing counseling, but is able to cope with her symptoms by talking with a friend, writing, or smoking marijuana. Would like to talk to couselor about her symptoms. 10/08/2023 1349 Last Filed Value PHQ-9 Little interest or pleasure in doing things Not at all Not at allLittle interest or pleasure in doing things. Not at all. Last Filed Value Feeling down, depressed, or hopeless More than half the days More than half the daysFeeling down, depressed, or hopeless. More than half the days. Last Filed Value Trouble falling or staying asleep, or sleeping too much Nearly every day Nearly every dayTrouble falling or staying asleep, or sleeping too much. Nearly every day. Last Filed Value Feeling tired or having little energy Several days Several daysFeeling tired or having little energy. Several days. Last Filed Value Poor appetite or overeating Several days Several daysPoor appetite or overeating. Several days. Last Filed Value Feeling bad about yourself - or that you are a failure or have let yourself or your family down Nearly every day Nearly every dayFeeling bad about yourself - or that you are a failure or have let yourself or your family down. Nearly every day. Last Filed Value Trouble concentrating on things, such as reading the newspaper or watching television Not at all Not at allTrouble concentrating on things, such as reading the newspaper or watching television. Not at all. Last Filed Value Moving or speaking so slowly that other people could have noticed. Or the opposite - being so fidgety or restless that you have been moving around a lot more than usual Not at all Not at allMoving or speaking so slowly that other people could have noticed. Or the opposite - being so fidgety or restless that you have been moving around a lot more than usual. Not at all. Last Filed Value Thoughts that you would be better off , or of hurting yourself in some way Not at all Not at allThoughts that you would be better off , or of hurting yourself in some way. Not at all. Last Filed Value If you checked off any problems, how difficult have these problems made it for you to do your work, take care of things at home, or get along with other people? -- -- PHQ-9 score 10 10 PHQ-9 Score 10 10PHQ-9 Score. 10. Last Filed Value PHQ-2 score 2 2 PHQ-2 Score 2 2 Patient longer smoking, but started vaping about 1 year. Vaping every other day. Would like help with cessation. Tried patches before without success. Not interested in rx today, will consider nicotine gum. Requesting referral to [facility] for routine exam. Last pap smear 10/2020 positive for ASCUS with negative HPV. Has not had repeat. Past medical history, appointments, medications, allergies reviewed. 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 History of chlamydia History of COVID-19 08/2021 Marijuana use Moderate episode of recurrent major depressive disorder (HCC) Pulmonary embolism (HCC) 09/08/2021 2/2 COVID Tobacco use Previous Surgical History PAST SURGICAL HISTORY Procedure Laterality Date SECTION HX 2010, 2017 x2 Family History FAMILY HISTORY Problem Relation Age of Onset Diabetes Mother Heart Mother CHF, pacemaker Hypertension Mother Patient Allergies ALLERGIES Allergen Reactions Cat Dander Rash, Itching Current Medications Current Outpatient Medications on File Prior to Visit Medication Sig cholecalciferol, vitamin D3, (VITAMIN D3 50 MCG, 2,000 UNIT, GUMMIES) Take 1 Dose by mouth once daily. polyethylene glycol 3350 (MIRALAX) 17 gram packet Take 1 Packet by mouth once daily as needed for constipation. Dissolve dose in 4 - 8 ounces of liquid and take as directed. cholecalciferol, Vitamin D3, (VITAMIN D3) 1,250 mcg (50,000 unit) cap capsule Take 1 capsule by mouth one time a week. cholecalciferol, Vitamin D3, (VITAMIN D3) 1,250 mcg (50,000 unit) cap capsule Take 1 capsule by mouth one time a week. No current facility-administered medications on file prior to visit. Social History Social History Tobacco Use Smoking status: Former Packs/day: 1.00 Years: 5.00 Additional pack years: 0.00 Total pack years: 5.00 Types: Cigarettes Quit date: 02/11/2021 Years since quittin.6 Smokeless tobacco: Never Tobacco comments: vape x7 daily Vaping Use Vaping Use: Never used Substance Use Topics Alcohol use: No Drug use: Yes Frequency: 2.0 times per week Types: Marijuana Review of Symptoms REVIEW OF SYSTEMS GENERAL: No weight loss, malaise or fevers HEENT: Negative for frequent or significant headaches, No changes in hearing or vision, no nose bleeds or other nasal problems NECK: Negative for lumps, goiter, pain and significant neck swelling RESPIRATORY: Negative for cough, hemoptysis, wheezing, COPD. Positive for some SOB when first getting out of bed in the morning. CARDIOVASCULAR: Negative for chest pain, leg swelling, hypertension, CHF or palpitations GI: No nausea, vomiting, or diarrhea : No history of dysuria, frequency or incontinence [facility]: Negative for abnormal vaginal bleeding, abnormal vaginal discharge MUSCULOSKELETAL: Negative for joint pain or swelling, back pain or muscle pain SKIN: Negative for lesions, rash, and itching PSYCH: See HPI HEMATOLOGY/LYMPHOLOGY: Negative for prolonged bleeding, bruising easily or swollen nodes ENDOCRINE: Negative for cold or heat intolerance, polyuria, polydipsia and goiter NEURO: No history of headaches, syncope, paralysis, seizures or tremors EXAM: BP 106/74 Pulse 84 Resp 16 Wt 69.9 kg (154 lb 3.2 oz) LMP 09/29/2023 SpO2 99% BMI 28.93 kg/m General Appearance: Well appearing, alert, in no acute distress, well-hydrated, well nourished.. Skin: Skin color, texture, turgor normal, no suspicious rashes or lesions. Head: Normocephalic, no masses, lesions, tenderness or abnormalities. Eyes: Anicteric sclera. Pupils are equally round and reactive to light. Extraocular movements are intact. . Ears: External ears normal, canals clear. Nose/Sinuses: Nares normal, septum midline, mucosa normal, no drainage or sinus tenderness. Oropharynx: Lips, mucosa, and tongue normal, teeth and gums normal, oropharynx normal. Neck: Supple, no adenopathy; thyroid symmetric, normal size, no bruits. Lungs: Lungs clear to auscultation. No wheezing, rhonchi, rales.. Heart: RRR without murmur, gallop, or rubs. No ectopy. Abdomen: Normal abdominal exam, Abdomen soft, non-tender. Bowel sounds normal. No masses, organomegaly. Extremities: No deformities, edema, skin discoloration, clubbing or cyanosis. Good capillary refill. . Musculoskeletal: No joint swelling, deformity, or tenderness. Peripheral Pulses: Normal. Lymph Nodes: No cervical lymphadenopathy and No supraclavicular lymphadenopathy. Health Maintenance List Covid-19 Vaccine(1) Never done Influenza Vaccine(1) due on 05/29/2023 Pap Testing due on 11/19/2023 DTaP,Tdap,Td Vaccine(2 - Td or Tdap) due on 06/28/2028 Hepatitis C Screening Completed HIV Screening Completed HPV Vaccine Aged Out Data reviewed Component Latest Ref Rng & Units 01/29/2022 Protein, Total 6.3 - 8.0 g/dL 7.6 Albumin 3.9 - 4.9 g/dL 4.7 Calcium 8.5 - 10.2 mg/dL 9.9 Bilirubin, Total 0.2 - 1.3 mg/dL 0.3 Alkaline Phosphatase 34 - 123 U/L 79 AST 13 - 35 U/L 19 ALT 7 - 38 U/L 16 Glucose 74 - 99 mg/dL 67 (L) BUN 7 - 21 mg/dL 14 Creatinine 0.58 - 0.96 mg/dL 0.74 Sodium 136 - 144 mmol/L 136 Potassium 3.7 - 5.1 mmol/L 3.8 Chloride 97 - 105 mmol/L 100 CO2 22 - 30 mmol/L 25 Anion Gap 9 - 18 mmol/L 11 eGFR >=60 mL/min/1.73m 115 WBC 3.70 - 11.00 k/uL 7.19 RBC 3.90 - 5.20 m/uL 5.05 Hemoglobin 11.5 - 15.5 g/dL 12.6 Hematocrit 36.0 - 46.0 % 40.1 MCV 80.0 - 100.0 fL 79.4 (L) MCH 26.0 - 34.0 pg 25.0 (L) MCHC 30.5 - 36.0 g/dL 31.4 RDW-CV 11.5 - 15.0 % 17.2 (H) Platelet Count 150 - 400 k/uL 345 MPV 9.0 - 12.7 fL 11.3 Absolute nRBC <0.01 k/uL <0.01 TSH 0.270 - 4.200 mIU/L 1.600 Vitamin D 25 Hydroxy 31.0 - 80.0 ng/mL 14.5 (L) ASSESSMENT/PLAN: 1. Annual physical exam - ICD9: V70.0, ICD10: Z00.00 (primary diagnosis) - Counseled on healthy diet and regular exercise - Calcium intake with supplements or by diet of 1000 mg/day for under 50, 5843-4720 mg/day for 50+ - Discussed need and benefit for weight loss. BMI 28.93 kg/(m^2) - Depression screening tool completed and reviewed with patient. Based on score and interview, patient is already diagnosed with depression and recommended counseling/psychology referral. - Follow up for annual exam in one year - CONSULT TO GYNECOLOGY - CBC + DIFF - COMP METABOLIC PANEL - LIPID PANEL BASIC 2. Moderate episode of recurrent major depressive disorder (HCC) - ICD9: 296.32, ICD10: F33.1 Uncontrolled. Referral to counseling as requested. Patient refusing rx. F/u in 3 months. - CONSULT TO [facility] 3. ASCUS of cervix with negative high risk HPV - ICD9: 795.01, ICD10: R87.610 Patient overdue for pap smear. Will refer to [facility] as requested for cervical cancer screening. 4. Overweight with body mass index (BMI) of 28 to 28.9 in adult - ICD9: 278.02, V85.24, ICD10: E66.3, Z68.28 Discussed diet and exercise. 5. Vitamin D deficiency - ICD9: 268.9, ICD10: E55.9 Recheck level and will make recommendations on supplement. - VITAMIN D 25 HYDROXY Jennifer Martinez MD documented in this encounter [facility] 06-30-2023 Note HNO ID: [id number] Author: Helen Galeas APRN.ROO[employer] PANEL HANGER Service: ? Author Type: Nurse Practitioner Type: Progress Notes Filed: 06/30/2023 9:39 AM Note Text: This note was created using [employer]. Subjective Yesica Willett is a 28 year old female. 28 year old female with PE presents for complaints of illness. Think I have COVID Acute onset Thursday +fatigue +headache Intermittent chills. +sore throat +fever Denies N/V/D +exposure to ill contacts, specifically COVID. Has used Ibuprofen Vapes tobacco. The history is provided by the patient. No language translator was used. Sinus Problem This is a new problem. The current episode started in the past 7 days. The problem occurs constantly. The problem has been unchanged. Associated symptoms include congestion, coughing, a fever, headaches and a sore throat. Pertinent negatives include no abdominal pain, anorexia, arthralgias, change in bowel habit, chest pain, chills, diaphoresis, fatigue, joint swelling, myalgias, nausea, neck pain, numbness, rash, swollen glands, urinary symptoms, vertigo, visual change, vomiting or weakness. Nothing aggravates the symptoms. She has tried NSAIDs for the symptoms. The treatment provided no relief. 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 MEDICATIONS polyethylene glycol 3350 (MIRALAX) 17 gram packet Take 1 Packet by mouth once daily as needed for constipation. Dissolve dose in 4 - 8 ounces of liquid and take as directed. cholecalciferol, Vitamin D3, (VITAMIN D3) 1,250 mcg (50,000 unit) cap capsule Take 1 capsule by mouth one time a week. cholecalciferol, Vitamin D3, (VITAMIN D3) 1,250 mcg (50,000 unit) cap capsule Take 1 capsule by mouth one time a week. FAMILY HISTORY Problem Relation Age of Onset Diabetes Mother Heart Mother CHF, pacemaker Hypertension Mother Social History Tobacco Use Smoking status: Former Packs/day: 1.00 Years: 5.00 Additional pack years: 0.00 Total pack years: 5.00 Types: Cigarettes Quit date: 02/11/2021 Years since quittin.3 Smokeless tobacco: Never Tobacco comments: vape x7 daily Vaping Use Vaping Use: Never used Substance Use Topics Alcohol use: No Drug use: Yes Frequency: 2.0 times per week Types: Marijuana Review of Systems Constitutional: Positive for fever. Negative for chills, diaphoresis and fatigue. HENT: Positive for congestion, postnasal drip, sinus pressure, sinus pain and sore throat. Eyes: Negative for pain, discharge, redness and itching. Respiratory: Positive for cough. Negative for apnea, choking and chest tightness. Cardiovascular: Negative for chest pain. Gastrointestinal: Negative for abdominal pain, anorexia, change in bowel habit, nausea and vomiting. Musculoskeletal: Negative for arthralgias, joint swelling, myalgias and neck pain. Skin: Negative for color change, pallor and rash. Allergic/Immunologic: Negative for environmental allergies, food allergies and immunocompromised state. Neurological: Positive for headaches. Negative for vertigo, weakness and numbness. Hematological: Negative for adenopathy. Does not bruise/bleed easily. Psychiatric/Behavioral: Negative for agitation, behavioral problems and confusion. Objective BP 120/82 Pulse 69 Temp 36.9 ?C (98.4 ?F) (Tympanic) Resp 18 Wt 70.4 kg (155 lb 3.2 oz) LMP 04/28/2023 SpO2 100% BMI 29.11 kg/m? Physical Exam Vitals and nursing note reviewed. Constitutional: General: She is not in acute distress. Appearance: Normal appearance. She is normal weight. She is not ill-appearing, toxic-appearing or diaphoretic. HENT: Head: Normocephalic and atraumatic. Right Ear: Ear canal and external ear normal. Left Ear: Ear canal and external ear normal. Nose: Congestion present. No rhinorrhea. Mouth/Throat: Mouth: Mucous membranes are moist. Pharynx: Posterior oropharyngeal erythema present. No oropharyngeal exudate. Eyes: General: Right eye: No discharge. Left eye: No discharge. Extraocular Movements: Extraocular movements intact. Conjunctiva/sclera: Conjunctivae normal. Pupils: Pupils are equal, round, and reactive to light. Cardiovascular: Rate and Rhythm: Normal rate and regular rhythm. Pulses: Normal pulses. Heart sounds: Normal heart sounds. No murmur heard. No friction rub. Pulmonary: Effort: Pulmonary effort is normal. No respiratory distress. Breath sounds: Normal breath sounds. No stridor. No (more content not included)... [facility] 06-30-2023 History of Presen t illness Narrative This note was created using [employer]. Subjective Yesica Willett is a 28 year old female. 28 year old female with PE presents for complaints of illness. Think I have COVID Acute onset Thursday +fatigue +headache Intermittent chills. +sore throat +fever Denies N/V/D +exposure to ill contacts, specifically COVID. Has used Ibuprofen Vapes tobacco. The history is provided by the patient. No language translator was used. Sinus Problem This is a new problem. The current episode started in the past 7 days. The problem occurs constantly. The problem has been unchanged. Associated symptoms include congestion, coughing, a fever, headaches and a sore throat. Pertinent negatives include no abdominal pain, anorexia, arthralgias, change in bowel habit, chest pain, chills, diaphoresis, fatigue, joint swelling, myalgias, nausea, neck pain, numbness, rash, swollen glands, urinary symptoms, vertigo, visual change, vomiting or weakness. Nothing aggravates the symptoms. She has tried NSAIDs for the symptoms. The treatment provided no relief. PAST MEDICAL HISTORY Diagnosis Date Class 1 obesity due to excess calories without serious comorbidity with body mass index (BMI) of 31.0 to 31.9 in adult Heart abnormality hole in heart as an History of chlamydia History of COVID-19 08/2021 Marijuana use Moderate episode of recurrent major depressive disorder (HCC) Pulmonary embolism (HCC) 09/08/202110/30 COVID Tobacco use PAST SURGICAL HISTORY Procedure Laterality Date SECTION HX 2017 x2 ALLERGIES Patient has no known allergies. MEDICATIONS polyethylene glycol 3350 (MIRALAX) 17 gram packet Take 1 Packet by mouth once daily as needed for constipation. Dissolve dose in 4 - 8 ounces of liquid and take as directed. cholecalciferol, Vitamin D3, (VITAMIN D3) 1,250 mcg (50,000 unit) cap capsule Take 1 capsule by mouth one time a week. cholecalciferol, Vitamin D3, (VITAMIN D3) 1,250 mcg (50,000 unit) cap capsule Take 1 capsule by mouth one time a week. FAMILY HISTORY Problem Relation Age of Onset Diabetes Mother Heart Mother CHF, pacemaker Hypertension Mother Social History Tobacco Use Smoking status: Former Packs/day: 1.00 Years: 5.00 Additional pack years: 0.00 Total pack years: 5.00 Types: Cigarettes Quit date: 02/11/2021 Years since quittin.3 Smokeless tobacco: Never Tobacco comments: vape x7 daily Vaping Use Vaping Use: Never used Substance Use Topics Alcohol use: No Drug use: Yes Frequency: 2.0 times per week Types: Marijuana Review of Systems Constitutional: Positive for fever. Negative for chills, diaphoresis and fatigue. HENT: Positive for congestion, postnasal drip, sinus pressure, sinus pain and sore throat. Eyes: Negative for pain, discharge, redness and itching. Respiratory: Positive for cough. Negative for apnea, choking and chest tightness. Cardiovascular: Negative for chest pain. Gastrointestinal: Negative for abdominal pain, anorexia, change in bowel habit, nausea and vomiting. Musculoskeletal: Negative for arthralgias, joint swelling, myalgias and neck pain. Skin: Negative for color change, pallor and rash. Allergic/Immunologic: Negative for environmental allergies, food allergies and immunocompromised state. Neurological: Positive for headaches. Negative for vertigo, weakness and numbness. Hematological: Negative for adenopathy. Does not bruise/bleed easily. Psychiatric/Behavioral: Negative for agitation, behavioral problems and confusion. Objective BP 120/82 Pulse 69 Temp 36.9 C (98.4 F) (Tympanic) Resp 18 Wt 70.4 kg (155 lb 3.2 oz) LMP 04/28/2023 SpO2 100% BMI 29.11 kg/m Physical Exam Vitals and nursing note reviewed. Constitutional: General: She is not in acute distress. Appearance: Normal appearance. She is normal weight. She is not ill-appearing, toxic-appearing or diaphoretic. HENT: Head: Normocephalic and atraumatic. Right Ear: Ear canal and external ear normal. Left Ear: Ear canal and external ear normal. Nose: Congestion present. No rhinorrhea. Mouth/Throat: Mouth: Mucous membranes are moist. Pharynx: Posterior oropharyngeal erythema present. No oropharyngeal exudate. Eyes: General: Right eye: No discharge. Left eye: No discharge. Extraocular Movements: Extraocular movements intact. Conjunctiva/sclera: Conjunctivae normal. Pupils: Pupils are equal, round, and reactive to light. Cardiovascular: Rate and Rhythm: Normal rate and regular rhythm. Pulses: Normal pulses. Heart sounds: Normal heart sounds. No murmur heard. No friction rub. Pulmonary: Effort: Pulmonary effort is normal. No respiratory distress. Breath sounds: Normal breath sounds. No stridor. No wheezing, rhonchi or rales. Chest: Chest wall: No tenderness. Abdominal: General: Abdomen is flat. There is no distension. Palpations: Abdomen is soft. There is no mass. Tenderness: There is no abdominal tenderness. There is no right CVA tenderness, left CVA tenderness, guarding or rebound. Hernia: No hernia is present. Musculoskeletal: General: No swelling, tenderness, deformity or signs of injury. Normal range of motion. Cervical back: Normal range of motion and neck supple. No rigidity. Right lower leg: No edema. Left lower leg: No edema. Lymphadenopathy: Cervical: Cervical adenopathy present. Skin: General: Skin is warm and dry. Capillary Refill: Capillary refill takes less than 2 seconds. Coloration: Skin is not jaundiced or pale. Findings: No bruising, erythema, lesion or rash. Neurological: General: No focal deficit present. Mental Status: She is alert and oriented to person, place, and time. Cranial Nerves: No cranial nerve deficit. Sensory: No sensory deficit. Motor: No weakness. Coordination: Coordination normal. Gait: Gait normal. Psychiatric: Mood and Affect: Mood normal. Behavior: Behavior normal. Thought Content: Thought content normal. Judgment: Judgment normal. Assessment and Plan ASSESSMENT/PLAN: 1. URI, acute - ICD9: 465.9, ICD10: J06.9 X 2 days - Discussed viral etiology and rationale for treatment. - Symptomatic treatment with prn analgesia - Supportive care with fluids and rest - The patient may also use OTC cough and cold meds as needed, warm salt water gargles, throat lozenges and/or OTC throat spray as needed, and nasal saline gtts and suction prn. - Follow up in 3-5 days if symptoms persist or sooner if worsening of symptoms - COVID & INFLUENZA A/B & RSV NAAT, ROUTINE-obtained and pending Work note Helen Galeas APRN.ROOF PANEL HANGER documented in this encounter [facility] 05-20-2023 Note HNO ID: [id number] Author: Viviane Graza APRN.ROOF PANEL HANGER Service: ? Author Type: Nurse Practitioner Type: Progress Notes Filed: 05/20/2023 3:16 PM Note Text: This is a 28 year old female who presents today with: Patient presents with: Acute Visit: Gum swelling, some bleeding at times, bad breath, no metallic taste in mouth HISTORY OF PRESENT ILLNESS: Yesica Willett is a 28 year old female. Patient presents with: Acute Visit: Gum swelling, some bleeding at times, bad breath, no metallic taste in mouth Constipation. 2 weeks. Gassy. Last stool very early this morning, but one piece of stool. Had to strain. + crampy. Some nausea. No vomiting. No hematochezia/melena. No loose stools. Normally will move bowels at least every other day. Tried karen tea, cranberry. Drinking a lot of water. Right shoulder pain Started around January. From working out. Noticed a popping with push-ups initially. Then later on some more discomfort when trying to lift something. Has been doing ROM exercises. Yesterday felt like she noticed a little swelling in the right shoulder. Hasn't been taking anything for it. Gums. Swollen and bad breath. [place] like intermittent swelling about a month ago. More consistent over the last week. Also having some pain. Has never been to dentist. PAST MEDICAL HISTORY: PAST MEDICAL HISTORY Diagnosis Date Class 1 obesity due to excess calories without serious comorbidity with body mass index (BMI) of 31.0 to 31.9 in adult Heart abnormality hole in heart as an History of chlamydia History of COVID-19 08/2021 Marijuana use Moderate episode of recurrent major depressive disorder (HCC) Pulmonary embolism (HCC) 09/08/2021 2/2 COVID Tobacco use PAST SURGICAL HISTORY Procedure Laterality Date SECTION HX 2010, 2017 x2 ALLERGIES Patient has no known allergies. MEDICATIONS Current Outpatient Medications Medication Sig cholecalciferol, Vitamin D3, (VITAMIN D3) 1,250 mcg (50,000 unit) cap capsule Take 1 capsule by mouth one time a week. cholecalciferol, Vitamin D3, (VITAMIN D3) 1,250 mcg (50,000 unit) cap capsule Take 1 capsule by mouth one time a week. No current facility-administered medications for this visit. FAMILY HISTORY Problem Relation Age of Onset Diabetes Mother Heart Mother CHF, pacemaker Hypertension Mother Social History Tobacco Use Smoking status: Former Packs/day: 1.00 Years: 5.00 Additional pack years: 0.00 Total pack years: 5.00 Types: Cigarettes Quit date: 02/11/2021 Years since quittin.2 Smokeless tobacco: Never Tobacco comments: vape x7 daily Vaping Use Vaping Use: Never used Substance Use Topics Alcohol use: No Drug use: Yes Frequency: 2.0 times per week Types: Marijuana EXAM: BP 124/80 Pulse 65 Resp 16 LMP 04/28/2023 SpO2 96% PHYSICAL EXAM: General Appearance: Well appearing, alert, in no acute distress, well-hydrated, well nourished.. Skin: Skin color, texture, turgor normal, no suspicious rashes or lesions. Head: Normocephalic, no masses, lesions, tenderness or abnormalities. Eyes: Anicteric sclera. Pupils are equally round and reactive to light. Extraocular movements are intact. Oropharynx: front lower teeth with redness and receeding gums. Neck: Supple, no adenopathy Lungs: Lungs clear to auscultation. No wheezing, rhonchi, rales.. Heart: RRR without murmur, gallop, or rubs. No ectopy. Abdomen: Abdomen soft, non-tender. Bowel sounds normal. No masses, organomegaly. Extremities: No deformities, edema, skin discoloration, clubbing or cyanosis. Good capillary refill. Neurologic: Gait normal. ASSESSMENT/PLAN: 1. Acute pain of right shoulder - ICD9: 719.41, ICD10: M25.511 (primary diagnosis) Discussed options. Will start nsaids for a week. Continue ROM exercises. She will message w/ update. If no improvement, will consider PT and/or xray. 2. Nausea - ICD9: 787.02, ICD10: R11.0 Likely d/t constipation. - HCG QUAL UR B/O - negative. 3. Dental infection - ICD9: 522.4, ICD10: K04.7 Salt water rinses. Will start pen vee K to cover for infection. Aware that she needs dental care. - PENICILLIN V POTASSIUM 500 MG TABLET 4. Acute constipation - ICD9: 564.00, ICD10: K59.00 Start miralax -- take twice daily until stools, then just once daily as needed. Increase fluids. Increase fiber. - POLYETHYLENE GLYCOL 3350 17 GRAM ORAL POWDER PACKET Discussed treatment plan and patient voices understanding. Patient's questions answered appropriately. Medications and potential side effects were discussed and patient voices understanding. Return to the office as scheduled or as needed for worsening/no improvement. Viviane Garza APRN.ROOF PANEL HANGER [facility] 04-24-2023 Note HNO ID: [id number] Author: Jayde Cao APRN.WANDA Service: ? Author Type: Nurse Practitioner Type: Progress Notes Filed: 04/24/2023 7:15 PM Note Text: This note was created using [employer]. Subjective Yesica Willett is a 28 year old female.Patient reports new onset migraines starting 2 days ago. Patient denies history of migraines. Also reports nausea, no vomiting. Review of Systems REVIEW OF SYSTEMS PAIN ASSESSMENT: CURRENTLY HAVING PAIN; LOCATION/DISTRIBUTION: head PAIN SCALE: 9 on 0-10 scale per patient PAIN CHARACTER: severe and sharp DURATION: (How long have you had the pain?) 2 days AGGRAVATING FACTORS: none ALLEVIATING FACTORS: resting GENERAL: No weight loss, malaise or fevers NEURO: Migraine headaches Objective BP 124/70 Pulse 86 Temp 37.1 ?C (98.8 ?F) Resp 16 Wt 71.2 kg (157 lb) LMP 08/17/2021 SpO2 100% BMI 29.45 kg/m? Physical Exam PHYSICAL EXAMINATION: General appearance: Well appearing, alert, in no acute distress, well-hydrated, well nourished. Head: Normocephalic, no masses, lesions, tenderness or abnormalities Neuro: Gait normal. Reflexes normal and symmetric. Sensation grossly intact. Assessment and Plan ASSESSMENT/PLAN: 1. Intractable migraine with status migrainosus, unspecified migraine type - ICD9: 346.93, ICD10: G43.911 -Patient instructed to go to ER to rule out life threatening causes of new onset migraines. Jayde Cao APRN.[facility] 12-01-2022 Note HNO ID: [id number] Author: Ed Antonio MD Service: ? Author Type: Physician Type: Progress Notes Filed: 12/01/2022 3:49 PM Note Text: Express Care Triage Note: Patient presents to the [facility] with complaint of abdominal pain. Her pain is 8/10 and runs from the middle of her abdomen to the right lower quadrant. She says she still has her appendix. Hx of ectopic in July. Patient referred to the ER for further evaluation of potentially life threatening cause for abdominal pain. [facility] 12-01-2022 History of Presen t illness Narrative Express Care Triage Note: Patient presents to the [facility] with complaint of abdominal pain. Her pain is 8/10 and runs from the middle of her abdomen to the right lower quadrant. She says she still has her appendix. Hx of ectopic in July. Patient referred to the ER for further evaluation of potentially life threatening cause for abdominal pain. documented in this encounter [facility] 07-30-2022 History of Presen t illness Narrative Patient triaged at [facility]. Here today with worsening vaginal bleeding. 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 Reports severe nausea earlier today. I will refer patient to ER. Patient in no apparent distress at time of triage. documented in this encounter [facility] 07-09-2022 Miscellaneous Notes Notified via [employer]. Advised to call in and schedule and to do blood work. Left a message for pt to call the office and ask to speak to a nurse. Marilin Frost LPN Patient is due for repeat vitamin D level. Patient is due for follow-up, please assist in scheduling. Jaclyn Persaud APRN.CNP RX INSTRUCTIONS: Patient aware RX will be sent to pharmacy. No need to notify patient. Last OV: 01/29/22 Last refill: 02/03/22 With 12 and 0 refills Follow up: No appointment scheduled at this time *Contacted patient 07/09 to schedule follow up. Sera Bauer MA documented in this encounter [facility] 02-03-2022 Miscellaneous Notes Patient notified of results, verbalizes understanding of instructions. Sera Bauer MA Vitamin D level severely low. Recommend 50,000 units of vitamin D weekly x 12 weeks and recheck in 3 months. Other labs normal. documented in this encounter [facility] 01-29-2022 History of Presen t illness Narrative Chief Complaint Patient presents with: Recheck: routine Fatigue: headaches x 2-3 months HPI Yesica Willett is a 27 year old female who presents here today for follow up after developing PE 2/2 COVID infection in August. Patient states that she did complete 3 months of Xaretlo without bruising/bleeding symptoms. Has not had any recurrent symptoms like when she had her PE. Denies chest pain, SOB, palpitations, LE edema. Complaining of fatigue/decreased energy x3+ months. Getting 8-9 hours without improvement in symptoms. Admits to feeling down/depressed, insomnia. Denies decreased interest, difficulty concentrating, change of appetite, feeling guilty, psychomotor symptoms, SI/HI. Notes that she does snore at night and jerks in her sleep. Has woken herself up gasping for air. Headaches in the mornings. Never took her vitamin D supplement for vitamin D deficiency. Would need new rx. Past medical history, appointments, medications, allergies reviewed. 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 History of chlamydia History of COVID-19 08/2021 Marijuana use Moderate episode of recurrent major depressive disorder (HCC) Pulmonary embolism (HCC) 09/08/2021 2/2 COVID Tobacco use Previous Surgical History PAST SURGICAL HISTORY Procedure Laterality Date SECTION HX 2010, 2017 x2 Family History FAMILY HISTORY Problem Relation Age of Onset Diabetes Mother Heart Mother CHF, pacemaker Hypertension Mother Patient Allergies ALLERGIES No Known Allergies Current Medications Current Outpatient Medications on File Prior to Visit Medication Sig cholecalciferol, Vitamin D3, (VITAMIN D3) 1,250 mcg (50,000 unit) cap capsule Take 1 capsule by mouth one time a week. No current facility-administered medications on file prior to visit. Social History Social History Tobacco Use Smoking status: Former Smoker Packs/day: 1.00 Years: 5.00 Pack years: 5.00 Types: Cigarettes Quit date: 02/11/2021 Years since quittin.9 Smokeless tobacco: Never Used Tobacco comment: vape x7 daily Vaping Use Vaping Use: Never used Substance Use Topics Alcohol use: No Drug use: Yes Frequency: 2.0 times per week Types: Marijuana Review of Symptoms REVIEW OF SYSTEMS GENERAL: No weight loss, malaise or fevers RESPIRATORY: Negative for cough, hemoptysis, wheezing, COPD, dyspnea or shortness of breath CARDIOVASCULAR: Negative for chest pain, leg swelling, hypertension, CHF or palpitations GI: No nausea, vomiting, or diarrhea SKIN: Negative for lesions, rash, and itching EXAM: BP 116/72 Pulse 80 Resp 14 Wt 78.5 kg (173 lb) LMP 08/17/2021 SpO2 100% BMI 32.45 kg/m General Appearance: Well appearing, alert, in no acute distress, well-hydrated, well nourished.. Skin: Skin color, texture, turgor normal, no suspicious rashes or lesions. Lungs: Lungs clear to auscultation. No wheezing, rhonchi, rales.. Heart: RRR without murmur, gallop, or rubs. No ectopy. Abdomen: Normal abdominal exam, Abdomen soft, non-tender. Bowel sounds normal. No masses, organomegaly. Extremities: No deformities, edema, skin discoloration, clubbing or cyanosis. Good capillary refill. Health Maintenance List HPV VACCINE(1 - 2-dose series) Never done COVID-19 VACCINE(1) due on 03/28/2022 INFLUENZA(Season Ended) due on 05/29/2022 PAP TESTING due on 11/19/2023 DTAP,TDAP,TD(2 - Td or Tdap) due on 06/28/2028 HEPATITIS C SCREENING Completed HIV SCREENING Completed ONE PNEUMOVAX PRIOR TO AGE 65 Addressed MENINGOCOCCAL CONJUGATE Aged Out Data reviewed Component Latest Ref Rng & Units 03/28/2021 Protein, Total 6.3 - 8.0 g/dL 7.0 Albumin 3.9 - 4.9 g/dL 4.5 Calcium 8.5 - 10.2 mg/dL 9.3 Bilirubin, Total 0.2 - 1.3 mg/dL 0.3 Alkaline Phosphatase 34 - 123 U/L 91 AST 13 - 35 U/L 17 Glucose 74 - 99 mg/dL 79 BUN 7 - 21 mg/dL 12 Creatinine 0.58 - 0.96 mg/dL 0.72 Sodium 136 - 144 mmol/L 140 Potassium 3.7 - 5.1 mmol/L 3.9 Chloride 97 - 105 mmol/L 106 (H) CO2 22 - 30 mmol/L 25 Anion Gap 9 - 18 mmol/L 9 ALT 7 - 38 U/L 13 eGFR- >60 eGFR-All Other Races . >60 WBC 3.70 - 11.00 k/uL 6.07 RBC 3.90 - 5.20 m/uL 4.08 Hemoglobin 11.5 - 15.5 g/dL 11.4 (L) Hematocrit 36.0 - 46.0 % 34.9 (L) MCV 80.0 - 100.0 fL 85.5 MCH 26.0 - 34.0 pG 27.9 MCHC 30.5 - 36.0 g/dL 32.7 RDW-CV 11.5 - 15.0 % 13.8 Platelet Count 150 - 400 k/uL 274 MPV 9.0 - 12.7 fL 10.9 Absolute nRBC <0.01 k/uL <0.01 Total Cholesterol, Nonfasting <200 mg/dL 167 Triglycerides, Nonfasting <150 mg/dL 93 HDL Cholesterol, Nonfasting >39 mg/dL 55 LDL Cholesterol, Nonfasting <100 mg/dL 93 Non HDL Cholesterol, Nonfasting <130 mg/dL 112 VLDL Cholesterol, Nonfasting <30 mg/dL 19 Total Chol/HDL Ratio, Nonfasting <5.10 mg/dL 3.04 LDL/HDL Ratio, Nonfasting <2.54 mg/dL 1.69 TSH 0.270 - 4.200 uU/mL 0.970 Vitamin B12 232 - 1,245 pg/mL 1,130 Vitamin D 25 Hydroxy 31.0 - 80.0 ng/mL 13.1 (L) ASSESSMENT/PLAN: 1. Fatigue, unspecified type - ICD9: 780.79, ICD10: R53.83 (primary diagnosis) Obtain labs and HSAT as ordered. Admits to mild depression symptoms, but is refusing rx and counseling. Has good support system at home. Red flags for re-assessment reviewed with patient in detail. - CBC - COMP METABOLIC PANEL - TSH BLD - VITAMIN D 25 HYDROXY 2. Daytime somnolence - ICD9: 780.54, ICD10: R40.0 - HOME SLEEP APNEA TEST (HSAT) 3. Moderate episode of recurrent major depressive disorder (HCC) - ICD9: 296.32, ICD10: F33.1 See above. 4. Vitamin D deficiency - ICD9: 268.9, ICD10: E55.9 Recheck vitamin D level. If still <20, will reorder 50,000 cholecalciferol. Jennifer Martinez MD documented in this encounter [facility] Diagnosis Vitamin D deficiency- Primary Unspecified vitamin D deficiency documented [facility] Diagnosis Vitamin D deficiency Unspecified vitamin D deficiency [facility] Diagnosis Vaginal bleeding- Primary Other specified noninflammatory disorder of vagina [facility]* Diagnosis Abdominal pain, RLQ- Primary Abdominal pain, right lower quadrant [facility]* Diagnosis URI, acute- Primary Acute upper respiratory infections of unspecified site [facility]* Diagnosis Annual physical exam- Primary Routine general medical examination at a health care facility Moderate episode of recurrent major depressive disorder (HCC) ASCUS of cervix with negative high risk HPV Overweight with body mass index (BMI) of 28 to 28.9 in adult Vitamin D deficiency Unspecified vitamin D deficiency [facility] ([facility]ative)* Diagnostic Procedure Only (Routine) - Authorized Specialty Diagnoses / Procedures Referred By Contact Referred To [facility] Diagnoses Daytime somnolence Procedures HOME SLEEP APNEA TEST (HSAT) SLEEP STD AIRFLOW HRT RATE&O2 SAT EFFORT UNATT Jennifer Martinez MD [address] [place] [address] [facility] [place] [address] [place] [address] Referral ID Status Reason Start Date Expiration Date Visits Requested Visits Authorized [id number] Authorized Auto-Generat ed Referral 01/29/2022 01/29/2023 1 1 [facility] Health Concerns Infection Onset Date Last Indicated Resolved Time COVID-19 Rule-Out 06/30/2023 06/30/2023 06/30/2023 8:58 PM EDT Reason for Referral Specialty Diagnoses / Procedures Referred By Contac t Referred To Contact Gynecology Diagnoses Annual physical exam Procedures CONSULT TO GYNECOLOGY OFFICE/OUTPATIENT [facility] HIGH MDM 60 MINUTES Jennifer Martinez MD [address] [place] [address] Referral ID Status Reason Start Date Expiration Date Visits Requested Visits Authorized [id number] Authorized PCP Requested Referral Auto-Generate d Referral 10/08/2023 10/07/2024 1 1 Summary Purpose Family History No Family History Records Found Advance Directives No Advanced Directives Records Found Additional Source Comments Source Comments (unrecognize d section and content) In the event this informatio n is protected by the Federal Confidentiality of Alcohol and Drug Abuse Patient Records regulations: The Federal rules restrict any use of the information to criminally investigate or prosecute any alcohol or drug abuse patient.[facility] the event this information is protected by the Federal Confidentiality of Alcohol and Drug Abuse Patient Records regulations: The Federal rules restrict any use of the information to criminally investigate or prosecute any alcohol or drug abuse patient.[facility] the event this information is protected by the Federal Confidentiality of Alcohol and Drug Abuse Patient Records regulations: The Federal rules restrict any use of the information to criminally investigate or prosecute any alcohol or drug abuse patient.[facility] the event this information is protected by the Federal Confidentiality of Alcohol and Drug Abuse Patient Records regulations: The Federal rules restrict any use of the information to criminally investigate or prosecute any alcohol or drug abuse patient.[facility] the event this information is protected by the Federal Confidentiality of Alcohol and Drug Abuse Patient Records regulations: The Federal rules restrict any use of the information to criminally investigate or prosecute any alcohol or drug abuse patient.[facility] the event this information is protected by the Federal Confidentiality of Alcohol and Drug Abuse Patient Records regulations: The Federal rules restrict any use of the information to criminally investigate or prosecute any alcohol or drug abuse patient.[facility] the event this information is protected by the Federal Confidentiality of Alcohol and Drug Abuse Patient Records regulations: The Federal rules restrict any use of the information to criminally investigate or prosecute any alcohol or drug abuse patient.[facility] Reason for Visit (unrecogniz ed section and content) Reason Comments Results Reason Onset Date Comments Refill Request 07/09/2022 Reason Comments Sinus Problem Sinus, WALKER, congestio n, ST and fever x 2 days Reason Comments Physical Consult gynocology Care Teams (unrecognized sec tion and content) Physician Anesthesiologist Relationship Specialty Start Date End Date Jennifer Martinez MD [address], [place] [id number] PCP - General Family Practice 07/08/18 Physician Anesthesiologist Relationship Specialty Start Date End Date Jennifer Martinez MD [address], [place] [id number] PCP - General Family Medicine 07/08/18 Physician Anesthesiologist Relationship Specialty Start Date End Date Jennifer Martinez MD [address], [place] [id number] PCP - General Family Medicine 07/08/18 Physician Anesthesiologist Relationship Specialty Start Date End Date Jennifer Martinez MD [address] [place] [address] PCP - General Family Medicine 07/08/18 Physician Anesthesiologist Relationship Specialty Start Date End Date Jennifer Martinez MD [address], [place] [address] PCP - General Family Medicine 07/08/18 Physician Anesthesiologist Relationship Specialty Start Date End Date Jennifer Martinez MD [address] [place] [address] PCP - General Family Medicine 07/08/18 INFORMATION SOURCE (unrecogn ized section and content) FOR RECORDS PERTAINING TO PATIENTS WHO ARE OR HAVE BEEN ENROLLED IN A CHEMICAL DEPENDENCY/SUBSTANCEABUSE PROGRAM, SOME INFORMATION MAY BE OMITTED. This clinical summary was aggregated from multiple sources. Caution should be exercised in using it in the provision of clinical care. This summary normalizes information from multiple sources, and as a consequence, information in this document may materially change the coding, format and clinical context of patient data. In addition, data may be omitted in some cases. CLINICAL DECISIONS SHOULD BE BASED ON THE PRIMARY CLINICAL RECORDS. [employer] provides no warranty or guarantee of the accuracy or completeness of information in this document.
== END 2023-10-31 12:53 | disposition home or self-care (01) ==
LOC: ED 12:48
PROVIDERS: Emergency Provider Emergency Medicine; PCP Family Medicine; Referring Provider Emergency Medicine; Visit Provider Emergency Medicine
DX: R59.0 Localized enlarged lymph nodes (principal); F17.210 Nicotine dependence, cigarettes, uncomplicated; F17.290 Nicotine dependence, other tobacco product, uncomplicated; R23.8 Other skin changes
CPT/HCPCS: 99283